=== PATIENT | female | born 1990 | race Caucasian/White ===

== ENCOUNTER 2018-07-08 09:57 | Inpatient (IN) | payer OTHER ==
[2018-07-08] MEDS ORDERED: NA CHLORIDE 0.9% 1,000 ML ONE ×3 (10:34→11:54)
[2018-07-08 10:46] LABS: Absolute Lymphocytes (CBC) 2.9 K/uL (0.7-4.9); Absolute Monocytes 1.3 K/uL (0.1-1.3); Absolute Neutrophil 16.4 K/uL (1.8-8.0); Basophils % 0.5 % (0-1.3); Eosinophils % 1.6 % (0-4.4); Hematocrit 30.6 % (36.0-45.0); Lymphocytes % 13.6 % (15.3-44.8); MPV 11.5 fL (7.6-11.3); RBC Red Blood Cell Count 3.96 M/uL (3.86-4.86)
[2018-07-08 11:07] LABS: BUN Blood Urea Nitrogen 15 mg/dL (7-18); Bicarbonate 31 mmol/L (21-32); Glucose Level 184 mg/dL (74-106); Potassium 4.1 mmol/L (3.5-5.1); Sodium Level 137 mmol/L (136-145); Troponin (Emerg Dept Use Only) 0.02 ng/mL (0.0-0.045)
--- NOTE | 2018-07-08 11:10 | RAD REPORT ---
EXAM DESCRIPTION: RAD - Chest Single View - 07/08/2018 11:03 am CLINICAL HISTORY: fever, AMS Chest pain. COMPARISON: No comparisons FINDINGS: Portable technique limits examination quality. Extensive bilateral pulmonary opacities are present likely representing pneumonia or pulmonary edema. Pneumonia is favored. The heart is upper limit normal size. Severe S-shaped scoliosis. IMPRESSION: Severe bilateral pneumonia pattern suspected.
[2018-07-08 11:21] LABS: Urine Blood TRACE (NEG); Urine Glucose NEGATIVE (NEG); Urine Protein TRACE (NEG)
--- NOTE | 2018-07-08 11:26 | RAD REPORT ---
EXAM DESCRIPTION: CT - Head Brain Wo Cont - 07/08/2018 11:10 am CLINICAL HISTORY: Alteration of awareness/confusion COMPARISON: None TECHNIQUE: Computed axial tomography of the head was obtained. IV contrast was not requested. All CT scans are performed using dose optimization technique as appropriate and may include automated exposure control or mA/KV adjustment according to patient size. FINDINGS: A right craniotomy has been performed An acute intracranial bleed is not seen . Right cerebral gliosis is present presumably is secondary to prior trauma. No extra-axial fluid collection is noted. Cerebral atrophy is noted. Fluid within the sinuses/ mastoids is not seen. IMPRESSION: No acute intracranial abnormality is seen. If patient's symptoms persist MRI of the bra in would be recommended.
[2018-07-08 11:44] LABS: Blood Morphology Comment NOT SEEN (NOT SEEN); Platelet Estimate ADEQ
[2018-07-08] MEDS ORDERED: Levofloxacin 750mg IV 750 MG/150 ML BAG IV ONE (11:54)
[2018-07-08] MEDS ORDERED: CEFTRIAXONE/SWI 1gm 1 GM/10 ML SYR ONE (11:54)
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
--- NOTE | 2018-07-08 15:42 | EKG ---
Test Date: 2018-07-08 Test Time: 09:55:36 Inspector Advanced Composite: TC MEASUREMENT RESULTS: Intervals: Rate: 133 AZ: 132 QRSD: 74 QT: 290 QTc: 431 Center: P: 38 AZ: 132 QRS: -27 T: 44 INTERPRETIVE STATEMENTS: Sinus tachycardia Otherwise normal ECG Compared to ECG 05/08/1996 11:24:00 Sinus rhythm no longer present Electronically Signed On 07-08-18 15:41:35 CDT by Mj Kohli
[2018-07-08] MEDS ORDERED: FENTANYL CITR 100 MCG/2 ML ONE (16:19)
--- NOTE | 2018-07-08 18:35 | P.HP ---
Certification for Inpatient Patient admitted to: Inpatient With expected LOS: >2 Midnights Practitioner: I am a practitioner with admitting privileges, knowledge of patient current condition, hospital course, and medical plan of care. Services: Services provided to patient in accordance with Admission requirements found in Title 42 Section 412.3 of the Code of Federal Regulations Patient History Date of Service: 07/08/18 Reason for admission: Altered mental status History of Present Illness: This is a 27-year-old female with history of TBI as a child leading to quadriplegia admitted for altered mental status common sepsis and pneumonia. Per sister at bedside, who is the exceptional children teacher of patient, starting a few days ago she thought patient was not looking well. On Sunday, she got more congested. Sister tried regular interventions like Mucinex, suctioning, Tylenol, etc which did not seemed to help. Sputum production got progressively worse and this morning, patient was very sleepy, short of breath and limp. She was not really opening eyes, very sleepy and not talking. At baseline, sister states that she is more awake, intermittently does talk and is more alert. With sister called her home health nurse this morning, then EMS was called. In the ER, initially patient's vital signs 105/67, heart rate of 130, respirations of 14, afebrile at 99.3 and 88% on room air. Her chest x-ray was consistent with severe bilateral pneumonia. Her CT of the head was negative for any acute abnormalities. Her labs were remarkable for WBC count of 21, pro calcitonin elevated at 1.98. Her lactic acid was normal and her other labs were fairly unremarkable. She was given Rocephin and Levaquin along with IV fluids 3 L bolus. At the time of my exam, patient was this little more alert, per sister. Hemodynamically she was still stable for tachycardia. She was admitted for management of severe bilateral pneumonia and sepsis. Allergies codeine Allergy (Unverified 03/27/17 14:38) Unknown Home medications list reviewed: Yes - Past Medical/Surgical History -: Quadriplegia -: Traumatic brain injury -: ADD/ADHD -: Dave button - Family History Father -: Cancer Notes: prostate ca Review of Systems 10-point ROS is otherwise unremarkable Physical Examination - Vital Signs Blood Pressure: 106/73 Pulse: 124 Respirations: 27 Pulse Ox (%): 92 - Physical Exam General: In no apparent distress, Other (Sleepy, able to follow commands and answer yes or no questions by blinking eyes) Neck: Supple, 2+ carotid pulse no bruit, No LAD, Without JVD or thyroid abnormality Respiratory: Diminished, Crackles/rales Cardiovascular: Normal pulses, Irregular heart rate/rhythm (Sinus tach) Gastrointestinal: Normal bowel sounds, No tenderness Neurological: Other (Quadriplegic) - Studies Laboratory Data (last 24 hrs) 07/08/18 10:26: WBC 21.0 H*, Hgb 9.4 L, Hct 30.6 L, Plt Count 329 07/08/18 10:26: Sodium 137, Potassium 4.1, BUN 15, Creatinine 0.74, Glucose 184 H Microbiology Data (last 24 hrs): 07/08/18 10:55 Nasopharnyx Influenza Type A Antigen Screen - Final 07/08/18 10:55 Nasopharnyx Influenza Type B Antigen Screen - Final Assessment and Plan - Problems (Diagnosis) (1) Sepsis Current Visit: Yes Status: Acute Plan: Sepsis protocol initiated. IV fluids, 100 cc/hr. She is status post a fluid bolus in the ER. Start IV antibiotics Monitor in the ICU Qualifiers: Sepsis type: sepsis due to unspecified organism Qualified Code(s): A41.9 - Sepsis, unspecified organism (2) Altered mental status Current Visit: Yes Status: Acute Plan: Likely secondary to infection and sepsis. Hemodynamically stable a CT scan negative for any acute abnormalities. Continue to monitor. (3) Bilateral pneumonia Current Visit: Yes Status: Acute Plan: IV antibiotics oxygen per protocol, as needed Repeat chest x-ray tomorrow Qualifiers: Pneumonia type: due to unspecified organism (4) Dehydration Current Visit: Yes Status: Acute Plan: Continue IV fluids. (5) Quadriplegia Current Visit: No Status: Chronic (6) TBI (traumatic brain injury) Current Visit: No Status: Chronic - Plan DVT prophylaxis: Lovenox GI prophylaxis: None Diet: Tube feeds Disposition: Admit to the ICU. IV antibiotics, IV fluids. Continue to monitor her mental status. Pending symptomatic improvement - Advance Directives Does patient have a Living Will: No Does patient have a Durable POA for Healthcare: No Critical Care: Yes
[2018-07-08] MEDS ORDERED: CEFTRIAXONE 1 GM/NS 50 ML 1 GM/50 ML BAG IV SCH (21:00)
[2018-07-08] MEDS: NA CHLORIDE 0.9% 1,000 ML IV SCH (21:12)
[2018-07-08] MEDS: CEFTRIAXONE/SWI 1gm 1 GM/10 ML SYR IV SCH (21:13)
[2018-07-09 05:14] LABS: Absolute Lymphocytes (CBC) 2.7 K/uL (0.7-4.9); Absolute Monocytes 1.2 K/uL (0.1-1.3); Absolute Neutrophil 16.6 K/uL (1.8-8.0); Basophils % 0.4 % (0-1.3); Eosinophils % 1.8 % (0-4.4); Hematocrit 26.7 % (36.0-45.0); Lymphocytes % 12.9 % (15.3-44.8); MPV 11.3 fL (7.6-11.3); Monocytes % 5.8 % (3.3-12.3); RBC Red Blood Cell Count 3.43 M/uL (3.86-4.86)
[2018-07-09 05:24] LABS: ALT/SGPT 12 U/L (12-78); AST/SGOT 18 U/L (15-37); Alkaline Phosphatase 99 U/L (45-117); BUN Blood Urea Nitrogen 8 mg/dL (7-18); Bicarbonate 26 mmol/L (21-32); Bilirubin Total 0.2 mg/dL (0.2-1.0); Glucose Level 89 mg/dL (74-106); Potassium 3.9 mmol/L (3.5-5.1); Protein, Total 6.3 g/dL (6.4-8.2); Sodium Level 139 mmol/L (136-145)
[2018-07-09] MEDS: NA CHLORIDE 0.9% 1,000 ML IV SCH (07:21)
--- NOTE | 2018-07-09 08:36 | RAD REPORT ---
EXAM DESCRIPTION: Jesus Single View07/09/2018 6:31 am CLINICAL HISTORY: Chest pain COMPARISON: July 08 FINDINGS: No significant change in extensive bilateral pulmonary opacities. Heart probably is galindo l size. Marked rotoscoliosis involves the spine IMPRESSION: No significant change in extensive bilateral pulmonary opacities probably representing pneumonia
[2018-07-09] MEDS ORDERED: Levofloxacin500mg IV 500 MG/100 ML BAG IV SCH (09:00)
[2018-07-09] MEDS ORDERED: KCL 20 MEQ/100 mL IVPB 20 MEQ/100 ML BAG IV SCH (09:00)
[2018-07-09] MEDS: ENOXAPARIN 40 MG/0.4 ML SQ SCH (09:12)
[2018-07-09] MEDS: CEFTRIAXONE/SWI 1gm 1 GM/10 ML SYR IV SCH (09:13)
[2018-07-09] MEDS: levETIRAcetam 500 MG/5 ML OSYR PO SCH ×2 (12:20→20:21)
[2018-07-09] MEDS ORDERED: Pharmacy Consult 1 EA XX PRN (12:31)
[2018-07-09] MEDS ORDERED: CEFEPIME 1 GM/VIAL IV SCH (12:32)
--- NOTE | 2018-07-09 12:38 | P.CNS ---
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 patient is quadriplegic patient is nonverbal admitted with chest congestion bilateral pneumonia productive cough worsening shortness of breath chest x-ray shows bilateral pneumonia currently stable alert blood pressure on oxygenation satisfactory does have stomach feeding tube Allergies codeine Allergy (Mild, Verified 07/08/18 21:02) Nausea/Vomiting Home Medications: Albuterol Neb [Proventil 0.083% Neb Soln] 2.5 mg IH Q8H PRN 07/08/18 Baclofen 20 mg PO SEECOM 07/08/18 Diazepam [Valium] 10 mg PO SEECOM 07/08/18 Gabapentin 600 mg PO TID 07/08/18 Guaifenesin/Dextromethorphan [Mucinex Dm ER 600-30 mg Tablet] 1 tab PO BID 07/08 Ibuprofen/Diphenhydramine HCl [Advil Pm Liqui-Gels] 1 each PO BID PRN 07/08/18 levETIRAcetam [Levetiracetam] 5 ml PO BID 07/08/18 - Past Medical/Surgical History Diabetic: No -: Quadriplegia -: Traumatic brain injury -: ADD/ADHD -: weak left eye -: Dave button -: Gastric tube -: left ovary removed -: vaginal 1x -: head surgery -: back sx 1x - Family History Father Medical History: Cancer Notes: prostate ca - Social History Alcohol use: No CD- Drugs: No Caffeine use: No Place of Residence: Home Review of Systems is unable to be obtained Physical Examination Temp Pulse Resp BP Pulse Ox 97.7 F 137 H 32 H 114/74 94 07/09/18 04:00 07/09/18 11:00 07/09/18 11:00 07/09/18 11:00 07/09/18 08:00 Respiratory: Crackles/rales (Extensive crackles on the right side) Cardiovascular: No edema, Edema Gastrointestinal: Normal bowel sounds, Soft and benign Neurological: Other (Patient is quadriplegic) - Problems (1) Bilateral pneumonia Current Visit: Yes Status: Acute Plan: Patient is 27 years of age quadriplegic admitted with the bilateral pneumonia white count is very elevated pro calcitonin is also elevated chest x-ray reviewed suggest changing to cefepime and vancomycin continue with Flagyl Dc IV fluids resume tube feeds labs reviewed blood gases pending saturation is 95% on 3 L Dc IV fluids and pain slight negative fluid balance Qualifiers: Pneumonia type: due to unspecified organism Lung location: unspecified part of lung Qualified Code(s): J18.9 - Pneumonia, unspecified organism
[2018-07-09] MEDS ORDERED: VANCOMYCIN 1.25 GM in NA CHLORIDE 0.9% 250 ML IVPB ONE (13:00)
[2018-07-09] MEDS: CEFEPIME/SWI 1gm 10 ML IV SCH ×2 (14:17→20:20)
[2018-07-09] MEDS: GABAPENTIN 300 MG CAP PO SCH ×2 (14:18→20:20)
[2018-07-09] MEDS: ALBUTEROL 2.5 MG/3 ML NEB SOL IH PRN (14:23)
[2018-07-09] MEDS: METRONIDAZOLE 500mg IVPB 500 MG/100 ML BAG IV SCH (17:00)
[2018-07-09 17:13] LABS: Arterial Blood Carboxyhemoglob 1.9 % (0-1.5); Blood O2 Saturation 91.9 % (92-98.5)
--- NOTE | 2018-07-09 17:16 | PN ---
Date of Progress Note: 07/09/2018 Subjective: The patient is seen and examined. Chart reviewed and case discussed with RN. The patie nt appears to be in mild distress. The patient has history of traumatic brain injury, unable to coop erate with history taking. The patient remains tachycardic and tachypneic. Medications: List reviewed. Physical Examination: Vital Signs: Temperature 97.7, heart rate 132, blood pressure 123/81, respirations 28, and O2 91% on 3 L via nasal cannula. General: Awake, alert, not oriented, in mild distress, ill-appearing female. CV: S1 and S2. Sinus tachycardia. Peripheral pulses present. Respiratory: Diminished breath sounds. Rhonchi present. The patient is tachypneic with use of acce ssory muscles. Gastrointestinal: Abdomen is soft, nontender, nondistended. Positive bowel sounds. No guarding or rigidity. Dave tube in place. Extremities: No clubbing or cyanosis. The patient has peripheral edema. Neurologic: The patient has paraplegia, nystagmus present. Laboratory Data: Sodium 139, potassium 3.9, chloride 109, CO2 26, BUN 8, creatinine 0.37, glucose 89 , calcium 7.5, albumin 2. WBC 21, H and H 8.4 and 26.7, platelets 267, neutrophils 79%. Cultures ar e pending. Influenza screen negative. Chest x-ray personally reviewed shows no significant change i n extensive bilateral pulmonary opacities, probably representing pneumonia. Assessment And Plan: A 27-year-old female with: 1.Sepsis. We will continue with IV fluids. Adjust IV antibiotics. Cultures are pending. The jesse ent is still tachycardic and tachypneic. We will repeat lactate and procalcitonin level. May need b olus. 2.Acute metabolic encephalopathy, likely secondary to sepsis from pneumonia. CT scan was negative. The patient does have some nystagmus. We will restart on the patient's Keppra. 3.Bilateral pneumonia, possible aspiration. The patient has feeding tube in place. We will adjust IV antibiotics. Cultures are pending at this time. Consult Pulmonology. 4.Acute dehydration. Continue IV fluids. 5.Severe protein-calorie malnutrition. Albumin is 2. Continue with protein supplementation. 6.Quadriplegia. 7.History of traumatic brain injury, not back to baseline. Plan: DVT prophylaxis with Lovenox. Continue monitoring in ICU setting. /LEE Voice ID: [id number] Report ID: [id number]
[2018-07-09] MEDS: BACLOFEN 10 MG TAB PO SCH (20:19)
[2018-07-09] MEDS: MUCINEX DM 12HR.SR TAB PO SCH (21:00)
[2018-07-10] MEDS: METRONIDAZOLE 500mg IVPB 500 MG/100 ML BAG IV SCH ×3 (01:31→16:19)
[2018-07-10] MEDS: VANCOMYCIN/NS 1 gm 1 GM/250 ML BAG IV SCH ×2 (01:31→14:02)
[2018-07-10 05:52] LABS: Absolute Lymphocytes (CBC) 2.2 K/uL (0.7-4.9); Absolute Monocytes 1.8 K/uL (0.1-1.3); Absolute Neutrophil 10.4 K/uL (1.8-8.0); BUN Blood Urea Nitrogen 4 mg/dL (7-18); Basophils % 0.5 % (0-1.3); Bicarbonate 32 mmol/L (21-32); Eosinophils % 3.4 % (0-4.4); Glucose Level 91 mg/dL (74-106); Hematocrit 29.1 % (36.0-45.0); Lymphocytes % 14.6 % (15.3-44.8); MPV 10.9 fL (7.6-11.3); Magnesium 2.3 mg/dL (1.8-2.4); Monocytes % 12.1 % (3.3-12.3); RBC Red Blood Cell Count 3.73 M/uL (3.86-4.86); Sodium Level 143 mmol/L (136-145)
--- NOTE | 2018-07-10 08:40 | P.PN ---
Subjective Date of Service: 07/10/18 Chief Complaint: Altered mental status, pneumonia respiratory failure Patient's condition is stable she is still requiring considerable amount of oxygen on a non-rebreather white count is declining blood pressure stable Review of Systems is unable to be obtained Physical Examination - Vital Signs Temperature: 97.4 F Blood Pressure: 107/72 Pulse: 119 Respirations: 21 Pulse Ox (%): 100 - Physical Exam General: Unresponsive Neck: Supple Respiratory: Clear to auscultation bilaterally Cardiovascular: Edema - Studies Microbiology Data (last 24 hrs): 07/08/18 10:26 Catheterized Urine [place] Count - Final 07/08/18 10:26 Catheterized Urine - Final No growth. Assessment & Plan - Problems (Diagnosis) (1) Bilateral pneumonia Current Visit: Yes Status: Acute Plan: Patient admitted with bilateral pneumonia hypoxic white count is declining cultures negative start on BiPAP chemistries reviewed pro calcitonin level is elevated patient is on broad-spectrum antibiotics Qualifiers: Pneumonia type: due to unspecified organism Lung location: unspecified part of lung Qualified Code(s): J18.9 - Pneumonia, unspecified organism
[2018-07-10 08:55] LABS: Anisocytosis 1+; Blood Morphology Comment NOTED (NOT SEEN); Platelet Estimate ADEQ; Toxic Granulation 1+
[2018-07-10] MEDS: MUCINEX DM 12HR.SR TAB PO SCH ×2 (09:00→21:00)
[2018-07-10] MEDS: CEFEPIME/SWI 1gm 10 ML IV SCH ×2 (09:00→21:56)
[2018-07-10] MEDS ORDERED: JEVITY 1.2 CAL LIQUID 1,000 ML BOT RTH SCH (10:00)
[2018-07-10] MEDS: ENOXAPARIN 40 MG/0.4 ML SQ SCH (11:03)
[2018-07-10] MEDS: GABAPENTIN 300 MG CAP PO SCH ×3 (11:03→21:55)
[2018-07-10] MEDS: BACLOFEN 10 MG TAB PO SCH ×3 (11:05→21:57)
[2018-07-10] MEDS: levETIRAcetam 500 MG/5 ML OSYR PO SCH ×2 (11:06→21:56)
[2018-07-10] MEDS ORDERED: NA CHLORIDE 0.9% 500 ML IV ONE (16:25)
--- NOTE | 2018-07-10 18:29 | PN ---
Date of Progress Note: 07/10/2018 Subjective: The patient is seen and examined. Chart reviewed and case discussed with RN and Dr. Kirstin doshi. The patient continues to have respiratory distress, will be started on BiPAP shortly. Medications: List reviewed. Physical Examination: Vital Signs: Temperature 97.4, heart rate 119, blood pressure 107/72, respirations 21, O2 100% on a BiPAP. General: Asleep, arousable; however, lethargic, in some respiratory distress. Ill-appearing female. CV: S1, S2. Sinus tachycardia. Peripheral pulses present. Respiratory: Diminished breath sounds. The patient is tachypneic with the use of accessory muscles. Gastrointestinal: Abdomen is soft, nontender, and nondistended. Positive bowel sounds. Extremities: No clubbing or cyanosis. The patient does have peripheral edema. Neuro: The patient is paraplegic. Laboratory Data: Sodium 143, potassium 4, chloride 107, CO2 32, BUN 4, creatinine 0.34, glucose 91, calcium 8.8, phosphorus 3, magnesium 2.3. Procalcitonin level from yesterday was 11.62. WBC 14.9, H and H 8.9 and 29.1, platelets 251, neutrophils 69%, 2% bands. Blood cultures show no growth to date . Urine culture final shows no growth. Assessment And Plan: A 27-year-old female with: 1.Sepsis secondary to pneumonia. The patient's white count is trending down. IV antibiotics were a djusted yesterday. Cultures show no growth to date. We will continue to monitor. 2.Acute respiratory failure. The patient is now on BiPAP secondary to bilateral pneumonia. We will continue to monitor closely. Appreciate Dr. Sevilla's input. 3.Acute metabolic encephalopathy, likely secondary to sepsis and pneumonia. The patient is still no t back to baseline according to her sister. 4.Bilateral pneumonia, possible aspiration. Feeding tube is in place. IV antibiotics have been adj usted. Cultures are negative to date. We will repeat chest x-ray in a.m. 5.Acute dehydration, resolving. IV fluids have been discontinued. 6.Severe protein-calorie malnutrition. Albumin less than 2. We will continue tube feeds. 7.Quadriplegia. We will continue with turning every 2 hours and foam boots for the heel. 8.History of traumatic brain injury. 9.Deep venous thrombosis prophylaxis with Lovenox. Plan: Continue monitoring in ICU setting. Prognosis is guarded. Follow up on culture results. /GLADYSL Voice ID: [id number] Report ID: [id number]
[2018-07-10] MEDS: ALBUTEROL 2.5 MG/3 ML NEB SOL IH PRN (20:20)
[2018-07-10] MEDS: FAMOTIDINE 20 MG/2 ML VIAL IV SCH (21:57)
[2018-07-11] MEDS: METRONIDAZOLE 500mg IVPB 500 MG/100 ML BAG IV SCH ×3 (01:04→17:15)
[2018-07-11] MEDS: ALBUTEROL 2.5 MG/3 ML NEB SOL IH PRN ×3 (02:30→16:30)
[2018-07-11] MEDS: VANCOMYCIN/NS 1 gm 1 GM/250 ML BAG IV SCH (05:38)
[2018-07-11 06:18] LABS: BUN Blood Urea Nitrogen 6 mg/dL (7-18); Bicarbonate 33 mmol/L (21-32); Glucose Level 80 mg/dL (74-106); Potassium 3.8 mmol/L (3.5-5.1); Sodium Level 146 mmol/L (136-145)
[2018-07-11 06:20] LABS: Absolute Monocytes 1.3 K/uL (0.1-1.3); Absolute Neutrophil 7.3 K/uL (1.8-8.0); Basophils % 0.5 % (0-1.3); Eosinophils % 4.7 % (0-4.4); Hematocrit 23.4 % (36.0-45.0); Lymphocytes % 24.7 % (15.3-44.8); MPV 10.5 fL (7.6-11.3); Monocytes % 10.4 % (3.3-12.3); RBC Red Blood Cell Count 3.08 M/uL (3.86-4.86)
[2018-07-11] MEDS ORDERED: POTASSIUM 25 MEQ EFFERV TAB PO ONE (08:00)
[2018-07-11] MEDS: MUCINEX DM 12HR.SR TAB PO SCH ×2 (09:00→21:00)
[2018-07-11] MEDS: levETIRAcetam 500 MG/5 ML OSYR PO SCH ×2 (09:43→21:02)
[2018-07-11] MEDS: BACLOFEN 10 MG TAB PO SCH ×3 (09:44→21:02)
[2018-07-11] MEDS: GABAPENTIN 300 MG CAP PO SCH ×3 (09:44→21:02)
[2018-07-11] MEDS: ENOXAPARIN 40 MG/0.4 ML SQ SCH (09:44)
[2018-07-11] MEDS: FAMOTIDINE 20 MG/2 ML VIAL IV SCH (09:44)
[2018-07-11] MEDS: CEFEPIME/SWI 1gm 10 ML IV SCH ×2 (09:45→21:03)
--- NOTE | 2018-07-11 09:58 | RAD REPORT ---
EXAM DESCRIPTION: Jesus Single View07/11/2018 9:49 am CLINICAL HISTORY: Chest pain COMPARISON: July 09 FINDINGS: Mild to moderate improvement in the bilateral pulmonary opacities. The heart is normal siz e IMPRESSION: Mild to moderate improvement in the bilateral pneumonia
[2018-07-11] MEDS: VANCOMYCIN 1.25 GM in NA CHLORIDE 0.9% 250 ML IVPB SCH (13:32)
--- NOTE | 2018-07-11 14:23 | P.PN ---
Subjective Date of Service: 07/11/18 Chief Complaint: Altered mental status, pneumonia respiratory failure Condition stable according to the nursing staff patient experiences desaturation off BiPAP white count is improving chest x-ray appearances have cleared cultures are so far negative Review of Systems is unable to be obtained Physical Examination - Vital Signs Temperature: 97.7 F Blood Pressure: 107/81 Pulse: 112 Respirations: 32 Pulse Ox (%): 100 - Physical Exam General: Unresponsive Respiratory: Clear to auscultation bilaterally, Diminished Cardiovascular: No edema Assessment & Plan - Problems (Diagnosis) (1) Bilateral pneumonia Current Visit: Yes Status: Acute Plan: Patient admitted with bilateral pneumonia improving white count is declined significantly cultures are all negative vital signs stable she is only on 30% oxygen will titrate O2 off BiPAP to a sat of 90% repeat ABGs labs show mild hypernatremia with increase PEG tube fluids mildly anemic continue to monitor check labs Qualifiers: Pneumonia type: due to unspecified organism Lung location: unspecified part of lung Qualified Code(s): J18.9 - Pneumonia, unspecified organism
[2018-07-11 16:37] LABS: Arterial Blood Carboxyhemoglob 1.6 % (0-1.5); Blood Gas Oxyhemoglobin 87.5 % (94-97); Blood O2 Saturation 89.1 % (92-98.5)
--- NOTE | 2018-07-11 16:41 | PN ---
Date of Progress Note: 07/11/2018 Subjective: The patient seen and examined. Chart reviewed and case discussed with RN and Dr. Felipe xavier. The patient seems to be improving. White count is trending down. No family at the bedside. Th e patient not able to verbalize due to her medical condition. Did wake up slightly more yesterday. Medications: List reviewed. Physical Examination: Vital Signs: Temperature 97.7, heart rate 97, blood pressure 92/62, respirations 14, O2 99% on BiPAP . General: Asleep but arousable, ill-appearing female. CV: S1, S2. Sinus tachycardia. Peripheral pulses present. Respiratory: The patient has diminished breath sounds bilaterally. Rhonchi heard. Gastrointestinal: Abdomen is soft, nondistended. Positive bowel sounds. Dave tube in place. Extremities: No clubbing, cyanosis. The patient has peripheral edema of bilateral upper and lower e xtremities. Neuro: The patient is paraplegic, largely nonverbal. Laboratory Data: Sodium 146, potassium 3.8, chloride 108, CO2 33, BUN 6, creatinine 0.29, glucose 80 , calcium 8.2. WBC 12.2, H and H 7.3, 23.4, platelets 274, neutrophils 59%. Blood cultures, no grow th to date. Urine culture, no growth. Chest x-ray, [id number] improvement in the bilateral pn eumonia. Assessment And Plan: A 27-year-old female with: 1.Sepsis secondary to pneumonia, improving. The patient's white blood cell count is normalized and the patient is still tachycardic and tachypneic, now hypotensive. The patient received 0.5 L bolus y esterday. She continues to be hypotensive, but MAP is around 72. No need to initiate pressors unles s MAP is below 65, and not responding to fluids. Cultures are negative to date. 2.Acute respiratory failure, currently on BiPAP. The patient was attempted to be weaned off, howeve r, became very tachypneic and increased work of breathing. We will continue BiPAP for now currently at 30% FiO2. Appreciate Dr. Sevilla's input. 3.Bilateral pneumonia, possible aspiration. The patient does have feeding tube and according to the sister they do hand-feed her on special occasions, which may be a reason for the aspiration. Contin ue IV antibiotics. Cultures are negative. Today's chest x-ray personally reviewed shows improvement in bilateral opacities. 4.Acute dehydration improving. 5.Severe protein-calorie malnutrition. Albumin less than 2. Continue protein supplementation and t ube feeds. 6.Quadriplegia. We will continue offloading in foam boots or heels. 7.History of traumatic brain injury. 8.Deep venous thrombosis prophylaxis with Lovenox. Plan: Continue monitoring in ICU setting. The patient still on BiPAP. Difficult to wean off. We w ill adjust IV fluids for hypernatremia which is minimal at 146. SA/MODL Voice ID: [id number] Report ID: [id number]
[2018-07-11 18:15] LABS: Hematocrit 23.1 % (36.0-45.0)
[2018-07-11 19:31] LABS: Ferritin 64.1 ng/mL (8-388)
[2018-07-11] MEDS ORDERED: NA CHLORIDE 0.9% 250 ML ONE (20:38)
[2018-07-12] MEDS: METRONIDAZOLE 500mg IVPB 500 MG/100 ML BAG IV SCH ×2 (00:49→09:41)
[2018-07-12] MEDS: VANCOMYCIN 1.25 GM in NA CHLORIDE 0.9% 250 ML IVPB SCH ×2 (00:50→13:11)
[2018-07-12 03:53] LABS: Absolute Lymphocytes (CBC) 2.9 K/uL (0.7-4.9); Absolute Monocytes 0.8 K/uL (0.1-1.3); Absolute Neutrophil 6.2 K/uL (1.8-8.0); Basophils % 0.8 % (0-1.3); Hematocrit 29.6 % (36.0-45.0); Lymphocytes % 27.9 % (15.3-44.8); MPV 10.1 fL (7.6-11.3); Monocytes % 7.8 % (3.3-12.3); RBC Red Blood Cell Count 3.76 M/uL (3.86-4.86)
[2018-07-12 07:05] LABS: BUN Blood Urea Nitrogen 6 mg/dL (7-18); Bicarbonate 36 mmol/L (21-32); Ferritin 65.3 ng/mL (8-388); Folic Acid, (Folate) > 20.0 ng/mL (3.1-17.5); Glucose Level 80 mg/dL (74-106); Potassium 3.6 mmol/L (3.5-5.1); Sodium Level 144 mmol/L (136-145); Transferrin 165 mg/dL (200-360)
[2018-07-12] MEDS: MUCINEX DM 12HR.SR TAB PO SCH ×3 (09:00→21:00)
[2018-07-12] MEDS: ENOXAPARIN 40 MG/0.4 ML SQ SCH (09:41)
[2018-07-12] MEDS: GABAPENTIN 300 MG CAP PO SCH ×3 (09:41→20:54)
[2018-07-12] MEDS: levETIRAcetam 500 MG/5 ML OSYR PO SCH ×2 (09:42→20:54)
[2018-07-12] MEDS: BACLOFEN 10 MG TAB PO SCH ×5 (09:42→21:04)
[2018-07-12] MEDS: CEFEPIME/SWI 1gm 10 ML IV SCH (09:43)
[2018-07-12] MEDS ORDERED: POTASSIUM 25 MEQ EFFERV TAB PO ONE (11:10)
--- NOTE | 2018-07-12 14:37 | P.PN ---
Subjective Date of Service: 07/12/18 Chief Complaint: Altered mental status, pneumonia respiratory failure Condition stable according to the nursing staff patient experiences desaturation off BiPAP white count is improving chest x-ray appearances have cleared cultures are so far negative patient is iron deficient transfusion packed red blood cells hypoxic hypercapnic Review of Systems is unable to be obtained Physical Examination - Vital Signs Temperature: 98 F Blood Pressure: 96/73 Pulse: 105 Respirations: 30 Pulse Ox (%): 98 - Physical Exam General: Alert Neck: Supple Respiratory: Clear to auscultation bilaterally, Diminished Cardiovascular: No edema, Normal pulses Assessment & Plan - Problems (Diagnosis) (1) Bilateral pneumonia Current Visit: Yes Status: Acute Plan: Patient has improve pneumonia is clearing his hypoxic hypercapnic may qualify for noninvasive vent cultures are so far negative chest x-ray shows an improvement still has some haziness on the right side all cultures are negative Dc IV antibiotics change to Augmentin patient is currently receiving blood transfusion very iron deficient will recheck arterial blood gases she may qualify for noninvasive ventilator transfer to the floor Qualifiers: Pneumonia type: due to unspecified organism Lung location: unspecified part of lung Qualified Code(s): J18.9 - Pneumonia, unspecified organism
[2018-07-12 15:49] LABS: Arterial Blood Carboxyhemoglob 1.5 % (0-1.5); Blood Gas Oxyhemoglobin 91.5 % (94-97); Blood O2 Saturation 93.1 % (92-98.5)
--- NOTE | 2018-07-12 16:34 | PN ---
Date of Progress Note: 07/12/2018 The patient much more awake and alert. Apparently, she blinks her eyes to say yes, was able to follow some commands today. Has been off BiPAP since around 7 a.m., doing well on nasal cannula. Medications: List reviewed. Physical Examination: Vital Signs: Temperature 98, heart rate 95, blood pressure 109/86, respirations 14, O2 100% on 2 L via nasal cannula. General: Awake, alert, nonverbal, able to follow some commands, responding to yes or no questions by blinking her eyes. CV: S1, S2. Sinus tachycardia. Peripheral pulses present. Respiratory: Diminished breath sounds. No wheezing or stridor. Gastrointestinal: Abdomen is soft, nontender, nondistended. Positive bowel sounds. Dave tube in place. Extremities: No clubbing, cyanosis, or edema. The patient does have peripheral edema. Neuro: The patient is paraplegic. Skin: The patient has stage I ulcer of the sacrum. Laboratory Data: Sodium 144, potassium 3.6, chloride 104, CO2 of 36, BUN 6, creatinine 0.37, glucose 80, and calcium 8.5. Iron panel shows iron level 18, TIBC is 209, transferrin 149, ferritin 64.1, vitamin B12 level 1513, serum folate is greater than 20. Procalcitonin is 1.72. WBC 10.5, H and H is 9.5 and 29.6, platelets 282. Blood culture showed no growth to date. Assessment And Plan: A 27-year-old female with: 1. Sepsis secondary to pneumonia, improved significantly. White blood cell count has normalized. Cultures are negative. Chest x-ray shows improvement. Blood pressure still on the low side, but MAP has improved to the 90s. 2. Acute respiratory failure, now off BiPAP for a couple of hours, tolerating nasal cannula well, slightly tachypneic. We will continue to monitor secondary to pneumonia. 3. Bilateral pneumonia, likely aspiration. Continue IV antibiotics. Cultures , no growth to date, improving. 4. Acute dehydration, improved. 5. Severe protein-calorie malnutrition. Continue protein supplementation via tube feeds. 6. Paraplegia. Continue offloading. 7. Sacral decubitus ulcer stage I. 8. History of traumatic brain injury. 9. Hypernatremia, corrected. We will continue to monitor. 10. Acute anemia. No clear source. May be related to anemia of chronic disease. The patient was transfused 1 unit PRBCs and we will continue to monitor H and H. DVT prophylaxis: Lovenox Step down to Med/Surg if stable off BIPAP SA/MODL Voice ID: [id number] Report ID: [id number] [facility]
--- NOTE | 2018-07-12 19:55 | RAD REPORT ---
EXAM DESCRIPTION: US - Pelvis Complete - 07/12/2018 6:55 pm CLINICAL HISTORY: Pelvic pain, vaginal bleeding COMPARISON: None. TECHNIQUE: Transabdominal pelvic sonography was performed. FINDINGS: Urinary bladder shows no wall thickening or mass. Uterus is 6.1 x 3.4 x 4.4 cm. Endometriu m is 3 mm. No focal endometrial mass or polyp. Right ovary is closely approximated to the lateral mar gin of the uterus. Doppler evaluation shows flow within the ovarian stroma. Left ovary was not identi fiable. No adnexal mass. No blood or fluid in the cul de sac. IMPRESSION: No uterine abnormality identifiable. Right ovary and right adnexa unremarkable. Nonvisualization of the left ovary with no left adnexal mass.
[2018-07-12] MEDS: AMOX/K CLAV 500 MG TAB PO SCH (20:54)
[2018-07-13 06:00] LABS: Absolute Lymphocytes (CBC) 2.8 K/uL (0.7-4.9); Absolute Monocytes 1.1 K/uL (0.1-1.3); Absolute Neutrophil 7.5 K/uL (1.8-8.0); Basophils % 0.5 % (0-1.3); Eosinophils % 3.8 % (0-4.4); Hematocrit 32.1 % (36.0-45.0); Lymphocytes % 23.4 % (15.3-44.8); RBC Red Blood Cell Count 4.11 M/uL (3.86-4.86)
[2018-07-13 06:14] LABS: BUN Blood Urea Nitrogen 8 mg/dL (7-18); Bicarbonate 35 mmol/L (21-32); Glucose Level 74 mg/dL (74-106); Magnesium 2.3 mg/dL (1.8-2.4); Phosphorus 3.7 mg/dL (2.5-4.9); Potassium 3.9 mmol/L (3.5-5.1); Sodium Level 141 mmol/L (136-145)
[2018-07-13] MEDS: ENOXAPARIN 40 MG/0.4 ML SQ SCH (08:05)
[2018-07-13] MEDS: GABAPENTIN 300 MG CAP PO SCH ×3 (08:06→20:34)
[2018-07-13] MEDS: MUCINEX DM 12HR.SR TAB PO SCH ×2 (08:07→20:33)
[2018-07-13] MEDS: levETIRAcetam 500 MG/5 ML OSYR PO SCH ×2 (08:07→20:33)
[2018-07-13] MEDS: AMOX/K CLAV 500 MG TAB PO SCH ×2 (08:08→20:33)
[2018-07-13 08:36] LABS: Blood Morphology Comment NOT SEEN (NOT SEEN); Platelet Estimate ADEQ; Urine White Blood Cell Casts OK
[2018-07-13] MEDS ORDERED: POTASSIUM 25 MEQ EFFERV TAB PO ONE (09:00)
--- NOTE | 2018-07-13 14:44 | PN ---
Date of Progress Note: 07/13/2018 Subjective: Patient seen and examined. Chart reviewed and case discussed with RN. The patient was stepped down from the ICU yesterday, much more awake and alert today. No family at the bedside. Medications: List reviewed. Physical Examination: Vital Signs: Temperature 98, heart rate 112, blood pressure 100/73, respirations 16, O2 is 97% on 2 liters via nasal cannula. General: Awake, alert, does not appear to be any acute distress. CV: S1, S2. Regular rate and rhythm. Peripheral pulses present. Respiratory: Diminished breath sounds, improving. Gastrointestinal: Abdomen is soft, nontender, nondistended. Positive bowel sounds. Boris-Gould tube in place. Extremities: No clubbing or cyanosis. The patient has peripheral edema bilateral upper and lower extremities. Neuro: Paraplegia. Laboratory Data: Sodium 141, potassium 3.9, chloride 101, CO2 35, BUN 8, creatinine 0.3, glucose 74, calcium 8.5, phosphorus 3.7, magnesium 2.3. WBC 11.9, H and H 10.3 and 32.1, platelets 332. Cultures, no growth to date. Assessment And Plan: A 27-year-old female with; 1. Sepsis secondary to pneumonia, improving. White blood cell count slightly elevated today. Cultures are negative. The patient now out of the ICU. The patient has been switched over to Augmentin. 2. Acute respiratory failure, now off BiPAP, doing well on nasal cannula. The patient will likely need noninvasive vent or BiPAP at home. Appreciate Dr. Sevilla's input. 3. Bilateral pneumonia, likely aspiration. The patient is switched over to Augmentin improving. 4. Acute dehydration, resolved. 5. Severe protein-calorie malnutrition. We will continue protein supplementation via tube feeds. 6. Paraplegia. Continue offloading. 7. Sacral decubitus ulcer stage I. 8. History of traumatic brain injury. 9. Deep venous thrombosis prophylaxis with Lovenox. 10. Acute anemia, unclear source. The patient had history of pelvic bleeding in the past. Ultrasound does not show any acute issues. We will monitor H and H. The patient has been transfuse 1 unit PRBC. Checks stool occult. 11. Hypernatremia, corrected. Plan: Discharge once noninvasive vent has been set up. ADDENDUM: Patients respiratory status deteriorated and had to be placed back on BIPAP. High fever, tachycardia and tachypnea. Pt transferred to ICU. ABG and CXR ordered. SA/MODL Voice ID: [id number] Report ID: [id number] MTDD
[2018-07-13] MEDS: ALBUTEROL 2.5 MG/3 ML NEB SOL IH PRN (14:55)
[2018-07-13 15:45] LABS: Arterial Blood Carboxyhemoglob 1.4 % (0-1.5); Blood O2 Saturation 93.9 % (92-98.5)
--- NOTE | 2018-07-13 16:26 | RAD REPORT ---
EXAM DESCRIPTION: Jesus Single View07/13/2018 4:05 pm CLINICAL HISTORY: Shortness of breath COMPARISON: July 11 FINDINGS: Left lung opacities appear mostly resolved. No significant change in moderate right pulmonary opacities consistent with pneumonia.
[2018-07-13] MEDS: ACETAMINOPHEN 325 MG TABLET PO PRN (18:49)
[2018-07-13] MEDS ORDERED: ACETAMINOPHEN 325 MG TABLET ONE (19:01)
[2018-07-13] MEDS: BACLOFEN 10 MG TAB PO SCH (20:34)
[2018-07-14 06:35] LABS: Absolute Lymphocytes (CBC) 4.1 K/uL (0.7-4.9); Absolute Monocytes 1.6 K/uL (0.1-1.3); Absolute Neutrophil 12.5 K/uL (1.8-8.0); Basophils % 0.6 % (0-1.3); Eosinophils % 2.2 % (0-4.4); Hematocrit 32.2 % (36.0-45.0); MPV 9.8 fL (7.6-11.3); Monocytes % 8.5 % (3.3-12.3); RBC Red Blood Cell Count 4.12 M/uL (3.86-4.86)
[2018-07-14] MEDS: ALBUTEROL 2.5 MG/3 ML NEB SOL IH PRN (07:50)
[2018-07-14] MEDS: GABAPENTIN 300 MG CAP PO SCH ×3 (09:00→21:00)
[2018-07-14] MEDS: MUCINEX DM 12HR.SR TAB PO SCH ×2 (09:00→21:00)
[2018-07-14] MEDS ORDERED: POTASSIUM 25 MEQ EFFERV TAB FT ONE (09:00)
[2018-07-14] MEDS: BACLOFEN 10 MG TAB PO SCH ×3 (11:11→21:11)
[2018-07-14] MEDS: levETIRAcetam 500 MG/5 ML OSYR PO SCH ×2 (11:11→21:11)
[2018-07-14] MEDS: ENOXAPARIN 40 MG/0.4 ML SQ SCH (11:11)
[2018-07-14] MEDS: AMOX/K CLAV 500 MG TAB PO SCH (11:11)
[2018-07-14] MEDS ORDERED: GABAPENTIN 100 MG CAP ONE ×2 (11:18→21:24)
[2018-07-14] MEDS ORDERED: Pharmacy Consult 1 EA XX PRN (11:20)
--- NOTE | 2018-07-14 11:22 | P.PN ---
Subjective Date of Service: 07/14/18 Chief Complaint: Respiratory distress fever Patient is 28 years of age was recently transferred to the floor developed some fever for respiratory distress elevated white count was transferred to the ICU is currently alert responsive hemodynamically stable Review of Systems is unable to be obtained Physical Examination - Vital Signs Temperature: 99.9 F Blood Pressure: 101/69 Pulse: 113 Respirations: 14 Pulse Ox (%): 98 - Physical Exam General: Alert, Cooperative Respiratory: Clear to auscultation bilaterally Cardiovascular: No edema, Regular rate/rhythm - Studies Microbiology Data (last 24 hrs): 07/08/18 10:45 Blood - Blood Aerobic Blood Culture - Final No growth in 5 days. 07/08/18 10:45 Blood - Blood Anaerobic Blood Culture - Final No growth in 5 days. 07/08/18 10:26 Blood - Blood Aerobic Blood Culture - Final No growth in 5 days. 07/08/18 10:26 Blood - Blood Anaerobic Blood Culture - Final No growth in 5 days. Assessment & Plan - Problems (Diagnosis) (1) Bilateral pneumonia Current Visit: Yes Status: Acute Plan: Patient is 28 years of age transfer to the ICU for recurrent fever elevated white count chest x-ray shows some Nasonex on the right side restart patient on meropenem and vancomycin I have ordered a CT scan of the chest chemistries unremarkable Dc Augmentin CT scan of the chest blood cultures urine cultures fungal cultures Qualifiers: Pneumonia type: due to unspecified organism Lung location: unspecified part of lung Qualified Code(s): J18.9 - Pneumonia, unspecified organism
--- NOTE | 2018-07-14 12:27 | RAD REPORT ---
EXAM DESCRIPTION: RAD - Chest Single View - 07/14/2018 9:27 am CLINICAL HISTORY: follow up PNA, increased WBCs Chest pain. COMPARISON: Chest Single View dated 07/13/2018; Chest Single View dated 07/11/2018; Chest Single View dated 07/09/2018; Chest Single View dated 07/08/2018 FINDINGS: Portable technique limits examination quality. Mild improvement in right lower lobe pulmonary infiltrate since comparative study. The left lung is c lear. The heart is normal in size. Prominent dextroscoliosis of the thoracic spine. IMPRESSION: Mild improvement in right lower lobe pneumonia since comparative study.
--- NOTE | 2018-07-14 14:56 | PN ---
Date of Progress Note: 07/14/2018 Subjective: Patient seen and examined. Chart reviewed and case discussed with RN. The patient had acute deterioration in her respiratory status yesterday and had to be transferred back to the ICU and place on the BiPAP. Her x-ray shows worsening of the right side. Medications: List reviewed. Physical Examination: Vital Signs: Temperature 99.9, heart rate 115, blood pressure 91/54, respirations 17, O2 is 98% on B iPAP 30%. General: Asleep, arousable, opens eyes, more lethargic than yesterday. CV: S1, S2. Sinus tachycardia. Peripheral pulses present. Respiratory: Diminished breath sounds on the right side, tachypneic. Gastrointestinal: Abdomen is soft, nontender, nondistended. Positive bowel sounds. Boris-Gould tube in place. Extremities: No clubbing or cyanosis. The patient has peripheral edema in bilateral upper and lower extremities. Neuro: Paraplegia. Laboratory Data: WBC 18.7, H and H 10.1 and 32.2, platelets 411. Cultures, no growth. Final chest x-ray continues to show infiltrate on the right. Left-sided infiltrate has improved. Assessment And Plan: A 28-year-old female with; 1.Sepsis. White count going up. Cultures are negative. The patient had been switched over to p.o. antibiotics yesterday. May need to revert back to IV antibiotics. We will discuss further with Pul monology. 2.Acute respiratory failure, back on BiPAP. The patient continues to be hypoxemic and retains CO2. Pneumonia is also a contributing factor. 3.Bilateral pneumonia, possible aspiration pneumonia. Chest x-ray shows improvement on the left; ho wever, right-sided infiltrates are persistent. Adjust antibiotics. 4.Acute dehydration, resolved. 5.Severe protein-calorie malnutrition. We will continue protein supplementation. 6.Paraplegia. Continue offloading. 7.Sacral decubitus ulcer stage I. 8.History of traumatic brain injury. 9.Acute anemia, unclear source. No active bleeding source. Hemoccult still pending. The patient w as transfused 1 unit PRBCs and H and H stable. We will monitor and transfuse a unit for less than 7. 10.Hypernatremia, corrected. 11.Deep venous thrombosis prophylaxis, Lovenox. The patient is high risk for DVT due to her paraple trent. Plan: Continue to monitor in ICU setting. Adjust antibiotics. /LEE Voice ID: [id number] Report ID: [id number]
[2018-07-14] MEDS ORDERED: VANCOMYCIN 1.5 GM in NA CHLORIDE 0.9% 500 ML IVPB ONE ×2 (15:00→19:00)
--- NOTE | 2018-07-14 15:36 | RAD REPORT ---
EXAM DESCRIPTION: RAD - Chest Single View - 07/14/2018 3:12 pm CLINICAL HISTORY: PICC line placement COMPARISON: Chest Single View dated 07/14/2018; Chest Single View dated 07/13/2018; Chest Single View dated 07/11/2018; Chest Single View dated 07/09/2018 FINDINGS: Portable chest was obtained following placement of a right upper extremity PICC line. The catheter tip projects over the SVC, however the distal aspect of the PICC line appears to coil in a U -shaped fashion and its tip is pointed cephalad..
[2018-07-14] MEDS ORDERED: Meropenem 500 MG VIAL IV SCH (17:00)
--- NOTE | 2018-07-14 17:55 | RAD REPORT ---
EXAM DESCRIPTION: RAD - Chest Single View - 07/14/2018 5:25 pm CLINICAL HISTORY: reinsertion of PICC line COMPARISON: Chest Single View dated 07/14/2018; Chest Single View dated 07/14/2018; Chest Single View dated 07/13/2018; Chest Single View dated 07/11/2018 FINDINGS: Portable chest was obtained following placement of a right upper extremity PICC line. The catheter tip projects over the SVC..
[2018-07-14] MEDS: Meropenem 500 MG in NA CHLORIDE 0.9% 100 ML IV SCH (18:08)
[2018-07-14 19:14] LABS: Urine Appearance CLEAR; Urine Bilirubin NEGATIVE (NEG); Urine Blood 1+ (NEG); Urine Color YELLOW; Urine Glucose NEGATIVE (NEG); Urine Protein NEGATIVE (NEG); Urine Specific Gravity <=1.005 (1.005-1.030); Urine Urobilinogen 0.2 mg/dL (0.2-1.0)
[2018-07-14 19:16] LABS: Urine Microscopic Reflex ORDER UMIC
[2018-07-14 19:32] LABS: Urine Bacteria <20 /HPF (<20); Urine Culture Reflex Order NOT NEEDED; Urine RBC <5 /HPF (NONE SEEN)
[2018-07-14] MEDS: DOCUSATE NA 100 MG CAP PO SCH (21:12)
--- NOTE | 2018-07-14 22:46 | RAD REPORT ---
EXAM DESCRIPTION: CT - Thorax W/ Con CLINICAL HISTORY: Chest pain Possible pneumonia pleural effusion COMPARISON: No comparisonsNo comparisons FINDINGS: Moderate airspace opacity is present in the right lung base with a small right pleural eff usion, likely representing pneumonia. Small left pleural effusion with small area of infiltrate/devel oping pneumonia is also seen in the left base also suspected. No pneumothorax. No axillary, mediastinal or hilar adenopathy. A very severe scoliosis of the thoracic spine concavity to the right. No gross upper abdominal findin g. All CT scans are performed using dose optimization technique as appropriate and may include automated exposure control or mA/KV adjustment according to patient size. IMPRESSION: Moderate airspace opacity in the right lower lobe with small right pleural effusion like ly represents pneumonia. Small left pleural effusion with probable small early pneumonia in the left lung base as well. Severe dextroscoliosis of the thoracic spine.
[2018-07-14] MEDS: ACETAMINOPHEN 325 MG TABLET PO PRN (23:04)
[2018-07-15] MEDS: Meropenem 500 MG in NA CHLORIDE 0.9% 100 ML IV SCH ×3 (01:25→17:55)
[2018-07-15] MEDS ORDERED: VANCOMYCIN 1.25 GM in NA CHLORIDE 0.9% 250 ML IVPB SCH (03:00)
[2018-07-15 06:08] LABS: Absolute Lymphocytes (CBC) 2.9 K/uL (0.7-4.9); Absolute Monocytes 1.1 K/uL (0.1-1.3); Absolute Neutrophil 8.7 K/uL (1.8-8.0); Basophils % 0.6 % (0-1.3); Eosinophils % 3.3 % (0-4.4); Hematocrit 30.2 % (36.0-45.0); Lymphocytes % 22.3 % (15.3-44.8); MPV 10.1 fL (7.6-11.3); RBC Red Blood Cell Count 3.85 M/uL (3.86-4.86)
[2018-07-15 06:10] LABS: BUN Blood Urea Nitrogen 7 mg/dL (7-18); Bicarbonate 35 mmol/L (21-32); Glucose Level 78 mg/dL (74-106); Potassium 3.8 mmol/L (3.5-5.1); Sodium Level 140 mmol/L (136-145)
[2018-07-15] MEDS: VANCOMYCIN 1.25 GM in NA CHLORIDE 0.9% 250 ML IVPB SCH ×2 (06:35→18:03)
[2018-07-15 06:47] LABS: Magnesium 2.5 mg/dL (1.8-2.4); Phosphorus 3.2 mg/dL (2.5-4.9)
[2018-07-15] MEDS ORDERED: KCL 20 MEQ/100 mL IVPB 20 MEQ/100 ML BAG IV SCH (07:00)
[2018-07-15] MEDS: DOCUSATE NA 100 MG CAP PO SCH ×2 (08:37→20:16)
[2018-07-15] MEDS: ENOXAPARIN 40 MG/0.4 ML SQ SCH (08:37)
[2018-07-15] MEDS: levETIRAcetam 500 MG/5 ML OSYR PO SCH ×2 (08:38→20:16)
[2018-07-15] MEDS: BACLOFEN 10 MG TAB PO SCH ×3 (08:38→20:16)
[2018-07-15] MEDS: MUCINEX DM 12HR.SR TAB PO SCH (08:39)
[2018-07-15] MEDS: GABAPENTIN 300 MG CAP PO SCH ×3 (09:00→20:16)
[2018-07-15 09:22] LABS: Protime INR 1.28
--- NOTE | 2018-07-15 13:25 | PN ---
Date of Progress Note: 07/15/2018 Subjective: The patient is seen and examined. Chart reviewed and case discussed with RN and Dr. Kirstin doshi. The patient is still in the ICU, had fever of 101.4 last night, has improved since yesterday. CT scan does show pleural effusion, which may need to be tapped. Medications: List reviewed. Physical Examination: Vital Signs: Temperature 98.5, heart rate 96, blood pressure 89/62, respirations 14, O2 100% on 2 L via nasal cannula. General: Asleep but arousable. Does not appear to be in any acute distress. Ill-appearing female. CV: S1, S2. Sinus tachycardia. Peripheral pulses present. Respiratory: Diminished breath sounds, worse on the right. Gastrointestinal: Abdomen is soft, nontender, nondistended. Positive bowel sounds. Extremities: No clubbing or cyanosis. The patient has peripheral edema in bilateral upper and lower extremities. Neuro: Paraplegia. Laboratory Data: Sodium 140, potassium 3.8, chloride 102, CO2 of 35, BUN 7, creatinine 0.32, glucose 78, calcium 8.5, phosphorus 3.2, magnesium 2.5. INR pending. WBC 13.2, H and H 9.6 and 30.2, plate lets 405, neutrophils 65%. Blood cultures, no growth. Final fungal blood culture is pending. CT sc an of the chest shows moderate airspace opacity in the right lower lobe with small right pleural effu rolando, likely represents pneumonia, small left pleural effusion with probable small early pneumonia in the left lung base as well. Severe dextroscoliosis of the thoracic spine. Assessment And Plan: A 28-year-old female with: 1.Sepsis secondary to pneumonia. The patient's white count is improving, now back on IV antibiotics . Cultures are negative to date. Fungal cultures have been obtained. 2.Pneumonia, bilateral, possible aspiration pneumonia, on 10 days of meropenem. White count is impr oving. CT scan shows bilateral effusions. 3.Acute respiratory failure, now weaned off BiPAP, currently on 2 L. 4.Bilateral pleural effusions. Ultrasound has been ordered by Pulmonology for possible thoracentesi s by IR. 5.Severe protein-calorie malnutrition. Continue protein supplements. 6.Paraplegia. Continue offloading. 7.Sacral decubitus ulcer, stage I. 8.History of traumatic brain injury. 9.Acute anemia likely iron deficiency. The patient has been transfused 1 unit of PRBCs. Hemoccult is still pending. No bowel movement. The patient will benefit from IV iron infusions in the future. 10.Hypernatremia, corrected. 11.Deep venous thrombosis prophylaxis with Lovenox. Plan: Ultrasound for pleural effusion for possible thoracentesis. /LEE Voice ID: [id number] Report ID: [id number]
--- NOTE | 2018-07-15 14:10 | RAD REPORT ---
EXAM DESCRIPTION: US - Chest - 07/15/2018 1:58 pm CLINICAL HISTORY: Pleural effusion COMPARISON: CT chest July 14 FINDINGS: Sonographic evaluation of the right chest was performed. A small pleural effusion was iden tifiable in the lower right posterior chest. Adjacent atelectatic lung is present. Given the relative ly small amount of fluid in the right lung base and patient immobility, ultrasound-guided thoracentes is is not likely obtainable. IMPRESSION: Small right lung base pleural effusion with adjacent lung parenchymal atelectasis.
[2018-07-15] MEDS: ACETAMINOPHEN 325 MG TABLET PO PRN (17:45)
[2018-07-16] MEDS: Meropenem 500 MG in NA CHLORIDE 0.9% 100 ML IV SCH ×3 (01:04→17:05)
[2018-07-16] MEDS: ALBUTEROL 2.5 MG/3 ML NEB SOL IH PRN (05:25)
[2018-07-16 06:19] LABS: Absolute Lymphocytes (CBC) 3.2 K/uL (0.7-4.9); Absolute Monocytes 0.8 K/uL (0.1-1.3); Absolute Neutrophil 5.7 K/uL (1.8-8.0); Basophils % 0.6 % (0-1.3); Eosinophils % 3.3 % (0-4.4); Hematocrit 29.3 % (36.0-45.0); Lymphocytes % 31.8 % (15.3-44.8); RBC Red Blood Cell Count 3.73 M/uL (3.86-4.86)
[2018-07-16 06:33] LABS: BUN Blood Urea Nitrogen 6 mg/dL (7-18); Bicarbonate 32 mmol/L (21-32); Glucose Level 87 mg/dL (74-106); Magnesium 2.5 mg/dL (1.8-2.4); Potassium 3.9 mmol/L (3.5-5.1); Sodium Level 142 mmol/L (136-145)
[2018-07-16] MEDS ORDERED: KCL 20 MEQ/100 mL IVPB 20 MEQ/100 ML BAG IV SCH (07:00)
[2018-07-16] MEDS: VANCOMYCIN 1.25 GM in NA CHLORIDE 0.9% 250 ML IVPB SCH ×2 (07:37→18:21)
[2018-07-16] MEDS: levETIRAcetam 500 MG/5 ML OSYR PO SCH ×2 (08:34→20:16)
[2018-07-16] MEDS: DOCUSATE NA 100 MG CAP PO SCH ×2 (08:34→20:17)
[2018-07-16] MEDS: GABAPENTIN 300 MG CAP PO SCH ×3 (08:35→20:16)
[2018-07-16] MEDS: ENOXAPARIN 40 MG/0.4 ML SQ SCH (08:35)
[2018-07-16] MEDS: BACLOFEN 10 MG TAB PO SCH ×3 (08:35→20:17)
--- NOTE | 2018-07-16 09:09 | P.PN ---
Subjective Date of Service: 07/16/18 Chief Complaint: Borderline fever Patient is doing better has coughed up some sputum has borderline temperature white count is back to normal cultures are so far negative Review of Systems is unable to be obtained Physical Examination - Vital Signs Temperature: 99.4 F Blood Pressure: 100/68 Pulse: 94 Respirations: 17 Pulse Ox (%): 100 - Physical Exam General: Alert, Cooperative Respiratory: Clear to auscultation bilaterally, Diminished Assessment & Plan - Problems (Diagnosis) (1) Bilateral pneumonia Current Visit: Yes Status: Acute Plan: Patient is improving white count has declined has some borderline temperature which is also improving cultures are so far negative sputum cultures ordered repeat arterial blood gases she has hypoventilation and may benefit from a noninvasive ventilator a BiPAP mild microcytic anemia patient probably has underlying iron deficient anemia may benefit from some iron transfusion ultrasound shows a small pleural effusion unable to do a thoracentesis as per radiology continue to monitor possible discharge with 2 weeks of IV antibiotics Qualifiers: Pneumonia type: due to unspecified organism Lung location: unspecified part of lung Qualified Code(s): J18.9 - Pneumonia, unspecified organism
[2018-07-16 10:14] LABS: Arterial Blood Carboxyhemoglob 1.4 % (0-1.5); Blood Gas Oxyhemoglobin 95.2 % (94-97)
--- NOTE | 2018-07-16 11:40 | RAD REPORT ---
EXAM DESCRIPTION: RAD - Chest Single View - 07/16/2018 11:34 am CLINICAL HISTORY: Fever, pneumonia COMPARISON: July 14 imaging chest films and CT chest imaging TECHNIQUE: AP portable chest image was obtained 1131 hours . FINDINGS: Small to moderate sized pleural effusion is seen on the right. On CT imaging this is seen as a relatively thin crescent-shaped collection along the posterior aspect of the right hemithorax. T here is right lower lobe atelectasis and partial right upper lobe atelectasis. Minimal fluid and atel ectasis still present on the left. Heart size is stable. No upper lobe vascular engorgement. Right-si de PICC line remains in place. No pneumothorax. No acute bony abnormality seen. No acute aortic findi ngs suspected. IMPRESSION: Right pleural effusion with right-sided atelectasis similar to comparison. Minimal left fluid in the left atelectasis.
[2018-07-16] MEDS: FERROUS SULFATE 325 MG TAB PO SCH (12:19)
[2018-07-16] MEDS: ACETAMINOPHEN 325 MG TABLET PO PRN (12:23)
[2018-07-16] MEDS: TRAMADOL HCL 50 MG TAB PO PRN (15:28)
--- NOTE | 2018-07-16 18:17 | P.PN ---
Subjective Date of Service: 07/16/18 Chief Complaint: Borderline fever Subjective: No C/O voiced, Improving Patient seen and examined at bedside. No family at bedside. Chart reviewed and case discussed with nursing staff. Patient continues to remain in the ICU. She continues to fluctuations of temperature, T-max of 101 at night. Continues to have Secretions. Review of Systems 10-point ROS is otherwise unremarkable Physical Examination - Vital Signs Temperature: 99.4 F Blood Pressure: 93/62 Pulse: 99 Respirations: 15 Pulse Ox (%): 100 - Physical Exam General: In no apparent distress, Other (Ill-appearing) HEENT: Atraumatic, PERRLA, EOMI Neck: Supple, JVD not distended Respiratory: Diminished Cardiovascular: Normal S1 S2, Irregular heart rate/rhythm (Sinus tachycardia) Gastrointestinal: Normal bowel sounds, No tenderness Integumentary: Other (Sacral ulcer) Neurological: Other (Paraplegia) Lymphatics: No axilla or inguinal lymphadenopathy Assessment And Plan - Current Problems (Diagnosis) (1) Sepsis Current Visit: Yes Status: Acute Plan: Improving. Continue IV antibiotics blood cultures negative to date. Fungal cultures pending Patient continues to have fluctuating temperatures. Continue to monitor in the ICU Qualifiers: Sepsis type: sepsis due to unspecified organism Qualified Code(s): A41.9 - Sepsis, unspecified organism (2) Bilateral pneumonia Current Visit: Yes Status: Suspected Plan: Suspected aspiration pneumonia. Continue IV antibiotics: meropenem times 10 days oxygen per protocol, as needed Repeat chest x-ray tomorrow Qualifiers: Pneumonia type: aspiration pneumonia Lung location: unspecified part of lung (3) Altered mental status Current Visit: Yes Status: Acute Plan: Likely secondary to infection and sepsis. Hemodynamically stable CT scan negative for any acute abnormalities. Now back to baseline. (4) Dehydration Current Visit: Yes Status: Resolved Plan: Resolved (5) Quadriplegia Current Visit: No Status: Chronic (6) TBI (traumatic brain injury) Current Visit: No Status: Chronic (7) Protein calorie malnutrition Current Visit: Yes Status: Acute Plan: Continue protein supplementation Qualifiers: Protein-calorie malnutrition severity: severe Qualified Code(s): E43 - Unspecified severe protein-calorie malnutrition (8) Sacral ulcer Current Visit: Yes Status: Acute Plan: Continue offloading and rotating Qualifiers: Non-pressure ulcer stage: limited to breakdown of skin Qualified Code(s): L98.421 - 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 Pulmonology award, appreciate recommendations. (10) Acute on chronic anemia Current Visit: Yes Status: Acute Plan: Likely secondary to iron-deficiency anemia. We will start iron supplementation via button. Continue to monitor H&H (11) Hypernatremia Current Visit: Yes Status: Resolved Plan: Resolved - Plan DVT prophylaxis: Lovenox GI prophylaxis: None Diet: Tube feeds Disposition: Continue to monitor in the ICU. Pending symptomatic improvement
[2018-07-17] MEDS: Meropenem 500 MG in NA CHLORIDE 0.9% 100 ML IV SCH ×3 (00:45→15:59)
[2018-07-17] MEDS: TRAMADOL HCL 50 MG TAB PO PRN ×2 (01:17→22:20)
[2018-07-17 05:57] LABS: BUN Blood Urea Nitrogen 6 mg/dL (7-18); Bicarbonate 32 mmol/L (21-32); Glucose Level 77 mg/dL (74-106); Magnesium 2.6 mg/dL (1.8-2.4); Phosphorus 3.8 mg/dL (2.5-4.9); Potassium 3.9 mmol/L (3.5-5.1); Sodium Level 141 mmol/L (136-145)
[2018-07-17] MEDS ORDERED: POTASSIUM 25 MEQ EFFERV TAB PO ONE (05:59)
[2018-07-17] MEDS: VANCOMYCIN 1.25 GM in NA CHLORIDE 0.9% 250 ML IVPB SCH ×2 (06:14→18:36)
--- NOTE | 2018-07-17 07:27 | RAD REPORT ---
EXAM DESCRIPTION: RAD - Chest Single View - 07/17/2018 7:11 am CLINICAL HISTORY: Pneumonia COMPARISON: July 16 TECHNIQUE: AP portable chest image was obtained 0708 hours . FINDINGS: Lung volumes are similar to comparison. Right-sided pleural effusion with right-sided atel ectasis not clearly different. Infiltrate could be masked within atelectasis. No new or progressive l eft lung base finding. PICC line remains in place. Heart and vasculature are normal. No measurable pl eural effusion and no pneumothorax. No acute bony abnormality seen. No acute aortic findings suspecte d. IMPRESSION: Stable chest from prior day imaging.
[2018-07-17] MEDS: GABAPENTIN 300 MG CAP PO SCH ×3 (08:35→20:07)
[2018-07-17] MEDS: levETIRAcetam 500 MG/5 ML OSYR PO SCH ×2 (08:35→20:07)
[2018-07-17] MEDS: DOCUSATE NA 100 MG CAP PO SCH ×2 (08:35→20:07)
[2018-07-17] MEDS: FERROUS SULFATE 325 MG TAB PO SCH (08:35)
[2018-07-17] MEDS: ENOXAPARIN 40 MG/0.4 ML SQ SCH (08:35)
[2018-07-17] MEDS: BACLOFEN 10 MG TAB PO SCH ×3 (08:36→20:07)
[2018-07-17 09:42] LABS: Arterial Blood Carboxyhemoglob 1.7 % (0-1.5); Blood Gas Oxyhemoglobin 89.9 % (94-97); Blood O2 Saturation 91.8 % (92-98.5)
[2018-07-17] MEDS: ACETAMINOPHEN 325 MG TABLET PO PRN ×2 (11:10→20:30)
--- NOTE | 2018-07-17 12:28 | P.PN ---
Subjective Date of Service: 07/17/18 Chief Complaint: Sepsis Patient is doing very well she is more alert responsive history at the bedside I had having a conversation final signs all stable sister requesting a Consul in a follow up with a neurologist Review of Systems is unable to be obtained Physical Examination - Vital Signs Temperature: 100.4 F Blood Pressure: 100/66 Pulse: 110 Respirations: 17 Pulse Ox (%): 100 - Physical Exam General: Alert, Cooperative Neck: Supple Respiratory: Clear to auscultation bilaterally Assessment & Plan - Problems (Diagnosis) (1) Bilateral pneumonia Current Visit: Yes Status: Suspected Plan: Patient is doing much better still has a borderline fever is quite possible that she has underlying fungal infection I suggest also starting her on Diflucan patient is hypoxic borderline hypercapnic on room-air blood gases Qualifiers: Pneumonia type: aspiration pneumonia Lung location: unspecified part of lung (2) Respiratory failure Current Visit: Yes Status: Acute Plan: Patient is 28 years of age with traumatic brain injury in quadriplegic she has hypoxic hypercapnic 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
[2018-07-17] MEDS: FLUCONAZOLE 400 MG IVPB 400 MG/200 ML BAG IV SCH (13:05)
--- NOTE | 2018-07-17 14:47 | P.PN ---
Subjective Date of Service: 07/17/18 Chief Complaint: Sepsis Subjective: Improving Patient seen and examined at bedside. No family at bedside. Chart reviewed and case discussed with nursing staff. He is also discussed with sister via telephone. Patient quite alert this morning. She continues to fluctuations of temperature , T-max of 100.6 at night. Review of Systems 10-point ROS is otherwise unremarkable Physical Examination - Vital Signs Temperature: 100.4 F Blood Pressure: 100/66 Pulse: 110 Respirations: 17 Pulse Ox (%): 100 - Physical Exam General: In no apparent distress, Other (More alert, aware. Was talking earlier ) HEENT: PERRLA, EOMI Respiratory: Clear to auscultation bilaterally, Normal air movement Cardiovascular: Regular rate/rhythm, Normal S1 S2 Gastrointestinal: Normal bowel sounds, No tenderness Neurological: Other (Quadriplegic) Assessment And Plan - Current Problems (Diagnosis) (1) Sepsis Current Visit: Yes Status: Acute Plan: Improved. Continue IV antibiotics blood cultures negative to date. Fungal cultures pending Patient continues to have fluctuating temperatures. Patient started on Diflucan for fungal coverage. Continue to monitor in the ICU Qualifiers: Sepsis type: sepsis due to unspecified organism Qualified Code(s): A41.9 - Sepsis, unspecified organism (2) Bilateral pneumonia Current Visit: Yes Status: Suspected Plan: Suspected aspiration pneumonia. Continue IV antibiotics: meropenem times 10 days oxygen per protocol, as needed Qualifiers: Pneumonia type: aspiration pneumonia Lung location: unspecified part of lung (3) Altered mental status Current Visit: Yes Status: Acute Plan: Likely secondary to infection and sepsis. Hemodynamically stable CT scan negative for any acute abnormalities. Now back to baseline. (4) Dehydration Current Visit: Yes Status: Resolved Plan: Resolved (5) Quadriplegia Current Visit: No Status: Chronic (6) TBI (traumatic brain injury) Current Visit: No Status: Chronic Plan: Neurology consulted, per family request (7) Protein calorie malnutrition Current Visit: Yes Status: Acute Plan: Continue protein supplementation Qualifiers: Protein-calorie malnutrition severity: severe Qualified Code(s): E43 - Unspecified severe protein-calorie malnutrition (8) Sacral ulcer Current Visit: Yes Status: Acute Plan: Continue offloading and rotating Qualifiers: Non-pressure ulcer stage: limited to breakdown of skin Qualified Code(s): L98.421 - 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 Pulmonology award, appreciate recommendations. (10) Acute on chronic anemia Current Visit: Yes Status: Acute Plan: Likely secondary to iron-deficiency anemia. We will start iron supplementation via button. Continue to monitor H&H (11) Hypernatremia Current Visit: Yes Status: Resolved Plan: Resolved - Plan DVT prophylaxis: Lovenox GI prophylaxis: None Diet: Tube feeds Disposition: Continue to monitor in the ICU. Pending symptomatic improvement. Continues remain stable overnight, will transfer to the floor tomorrow morning. Anticipate discharge home in the next 48 hr, pending clinical improvement.
[2018-07-18] MEDS: Meropenem 500 MG in NA CHLORIDE 0.9% 100 ML IV SCH ×3 (00:32→17:00)
[2018-07-18] MEDS: VANCOMYCIN 1.25 GM in NA CHLORIDE 0.9% 250 ML IVPB SCH ×2 (06:15→20:11)
[2018-07-18 06:23] LABS: BUN Blood Urea Nitrogen 7 mg/dL (7-18); Bicarbonate 33 mmol/L (21-32); Glucose Level 72 mg/dL (74-106); Magnesium 2.5 mg/dL (1.8-2.4); Phosphorus 3.9 mg/dL (2.5-4.9); Potassium 4.5 mmol/L (3.5-5.1); Sodium Level 142 mmol/L (136-145)
[2018-07-18 07:25] LABS: Absolute Monocytes 0.7 K/uL (0.1-1.3); Absolute Neutrophil 5.2 K/uL (1.8-8.0); Basophils % 0.9 % (0-1.3); Eosinophils % 1.8 % (0-4.4); Hematocrit 29.2 % (36.0-45.0); Lymphocytes % 24.7 % (15.3-44.8); MPV 10.4 fL (7.6-11.3); Monocytes % 9.1 % (3.3-12.3)
[2018-07-18] MEDS: DOCUSATE NA 100 MG CAP PO SCH ×2 (07:46→20:52)
[2018-07-18] MEDS: GABAPENTIN 300 MG CAP PO SCH ×3 (07:46→20:52)
[2018-07-18] MEDS: ACETAMINOPHEN 325 MG TABLET PO PRN (07:46)
[2018-07-18] MEDS: FERROUS SULFATE 325 MG TAB PO SCH (07:46)
[2018-07-18] MEDS: ENOXAPARIN 40 MG/0.4 ML SQ SCH (07:47)
[2018-07-18] MEDS: BACLOFEN 10 MG TAB PO SCH ×3 (07:47→20:52)
[2018-07-18] MEDS: levETIRAcetam 500 MG/5 ML OSYR PO SCH ×2 (07:47→20:55)
--- NOTE | 2018-07-18 11:15 | P.PN ---
Subjective Date of Service: 07/18/18 Chief Complaint: Sepsis Subjective: Improving Patient seen and examined at bedside. No family at bedside. Chart reviewed and case discussed with nursing staff. He is also discussed with sister via telephone. Patient alert this morning. Talks quite a lot when sister is there. She continues to fluctuations of temperature, T-max of 101 this morning Review of Systems 10-point ROS is otherwise unremarkable Physical Examination - Vital Signs Temperature: 100 F Blood Pressure: 97/65 Pulse: 114 Respirations: 14 Pulse Ox (%): 94 - Physical Exam General: Alert, In no apparent distress, Other (Answers questions by blinking;) Respiratory: Clear to auscultation bilaterally, Normal air movement Cardiovascular: Regular rate/rhythm, Normal S1 S2 Gastrointestinal: Normal bowel sounds, No tenderness Musculoskeletal: Other (Quadriplegic) Assessment And Plan - Current Problems (Diagnosis) (1) Sepsis Current Visit: Yes Status: Acute Plan: Improved. Continue IV antibiotics blood cultures negative to date. Fungal cultures pending Patient continues to have fluctuating temperatures. Continue with Diflucan for fungal coverage. Qualifiers: Sepsis type: sepsis due to unspecified organism Qualified Code(s): A41.9 - Sepsis, unspecified organism (2) Bilateral pneumonia Current Visit: Yes Status: Suspected Plan: Suspected aspiration pneumonia. Continue IV antibiotics: meropenem times 10 days oxygen per protocol, as needed Qualifiers: Pneumonia type: aspiration pneumonia Lung location: unspecified part of lung (3) Altered mental status Current Visit: Yes Status: Acute Plan: Likely secondary to infection and sepsis. Hemodynamically stable CT scan negative for any acute abnormalities. Now back to baseline. (4) Dehydration Current Visit: Yes Status: Resolved Plan: Resolved (5) Quadriplegia Current Visit: No Status: Chronic (6) TBI (traumatic brain injury) Current Visit: No Status: Chronic Plan: Neurology consulted, per family request (7) Protein calorie malnutrition Current Visit: Yes Status: Acute Plan: Continue protein supplementation Qualifiers: Protein-calorie malnutrition severity: severe Qualified Code(s): E43 - Unspecified severe protein-calorie malnutrition (8) Sacral ulcer Current Visit: Yes Status: Acute Plan: Continue offloading and rotating Qualifiers: Non-pressure ulcer stage: limited to breakdown of skin Qualified Code(s): L98.421 - 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 Pulmonology award, appreciate recommendations. (10) Acute on chronic anemia Current Visit: Yes Status: Acute Plan: Likely secondary to iron-deficiency anemia. We will start iron supplementation via button. Continue to monitor H&H (11) Hypernatremia Current Visit: Yes Status: Resolved Plan: Resolved - Plan DVT prophylaxis: Lovenox GI prophylaxis: None Diet: Tube feeds Disposition: Transfer to the floor. Pending symptomatic improvement. Anticipate discharge home in the next 24 hr, pending clinical improvement.
[2018-07-18] MEDS: FLUCONAZOLE 400 MG IVPB 400 MG/200 ML BAG IV SCH (11:42)
[2018-07-18] MEDS: TRAMADOL HCL 50 MG TAB PO PRN (11:44)
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
[2018-07-19] MEDS: Meropenem 500 MG in NA CHLORIDE 0.9% 100 ML IV SCH ×3 (00:50→16:16)
[2018-07-19] MEDS ORDERED: NA CHLORIDE 0.9% 250 ML ONE (01:02)
[2018-07-19] MEDS: VANCOMYCIN 1.25 GM in NA CHLORIDE 0.9% 250 ML IVPB SCH ×2 (06:02→06:32)
[2018-07-19] MEDS: BACLOFEN 10 MG TAB PO SCH ×3 (09:41→21:52)
[2018-07-19] MEDS: GABAPENTIN 300 MG CAP PO SCH ×3 (09:41→21:51)
[2018-07-19] MEDS: ENOXAPARIN 40 MG/0.4 ML SQ SCH (09:42)
[2018-07-19] MEDS: levETIRAcetam 500 MG/5 ML OSYR PO SCH ×2 (09:42→21:50)
[2018-07-19] MEDS: DOCUSATE NA 100 MG CAP PO SCH ×2 (09:42→21:51)
--- NOTE | 2018-07-19 10:46 | P.PN ---
Subjective Date of Service: 07/19/18 Chief Complaint: Sepsis Patient is doing much better transfer to the floor alert responsive cooperative no fever white count is also declining seen by neurology vital signs stable Review of Systems is unable to be obtained Physical Examination - Vital Signs Temperature: 98.3 F Blood Pressure: 96/50 Pulse: 108 Respirations: 18 Pulse Ox (%): 96 - Physical Exam General: Alert, Cooperative Respiratory: Clear to auscultation bilaterally, Diminished Assessment & Plan - Problems (Diagnosis) (1) Bilateral pneumonia Current Visit: Yes Status: Suspected Plan: Doing much better continue with present antibiotics continue with anti fungal therapy Qualifiers: Pneumonia type: aspiration pneumonia Lung location: unspecified part of lung (2) Respiratory failure Current Visit: Yes Status: Acute Plan: Pt has chronic respiratory failure secondary to dramatic brain injury as also quadriplegic and hypercapnic and will benefit from BiPAP Qualifiers: Respiratory failure complication: hypoxia and hypercapnia
[2018-07-19] MEDS: ACETAMINOPHEN 325 MG TABLET PO PRN (12:00)
[2018-07-19] MEDS: FLUCONAZOLE 400 MG IVPB 400 MG/200 ML BAG IV SCH (12:01)
[2018-07-19] MEDS ORDERED: ALTEPLASE 2 MG/VIAL IV ONE (12:55)
[2018-07-19] MEDS ORDERED: ALTEPLASE 2 MG/VIAL IV SCH (13:00)
[2018-07-19] MEDS: VANCOMYCIN/NS 1 gm 1 GM/250 ML BAG IV SCH (15:07)
--- NOTE | 2018-07-19 16:21 | P.PN ---
Subjective Date of Service: 07/19/18 Chief Complaint: Sepsis Subjective: No C/O voiced, Improving Patient seen and examined at bedside. No family at bedside. Chart reviewed and case discussed with nursing staff. He is also discussed with sister via telephone. Patient alert this morning. Low-grade fever noted overnight. Patient continues to be on IV antibiotics and Diflucan. Blood cultures and fungal culture still pending. Review of Systems 10-point ROS is otherwise unremarkable Physical Examination - Vital Signs Temperature: 97.7 F Blood Pressure: 106/56 Pulse: 129 Respirations: 20 Pulse Ox (%): 98 - Physical Exam General: In no apparent distress, Other (Alert and following commands at baseline with eyes/blinking) Respiratory: Clear to auscultation bilaterally, Normal air movement Cardiovascular: Regular rate/rhythm, Normal S1 S2 Neurological: Other (Quadriplegic) Assessment And Plan - Current Problems (Diagnosis) (1) Sepsis Current Visit: Yes Status: Acute Plan: Improved. Continue IV antibiotics blood cultures negative to date. Fungal cultures pending Patient continues to have fluctuating temperatures. Continue with Diflucan for fungal coverage. Qualifiers: Sepsis type: sepsis due to unspecified organism Qualified Code(s): A41.9 - Sepsis, unspecified organism (2) Bilateral pneumonia Current Visit: Yes Status: Suspected Plan: Suspected aspiration pneumonia. Continue IV antibiotics: meropenem times 10 days oxygen per protocol, as needed Qualifiers: Pneumonia type: aspiration pneumonia Lung location: unspecified part of lung (3) Altered mental status Current Visit: Yes Status: Acute Plan: Likely secondary to infection and sepsis. Hemodynamically stable CT scan negative for any acute abnormalities. Now back to baseline. (4) Dehydration Current Visit: Yes Status: Resolved Plan: Resolved (5) Quadriplegia Current Visit: No Status: Chronic (6) TBI (traumatic brain injury) Current Visit: No Status: Chronic Plan: Neurology consulted, per family request (7) Protein calorie malnutrition Current Visit: Yes Status: Acute Plan: Continue protein supplementation Qualifiers: Protein-calorie malnutrition severity: severe Qualified Code(s): E43 - Unspecified severe protein-calorie malnutrition (8) Sacral ulcer Current Visit: Yes Status: Acute Plan: Continue offloading and rotating Qualifiers: Non-pressure ulcer stage: limited to breakdown of skin Qualified Code(s): L98.421 - 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 Pulmonology award, appreciate recommendations. (10) Acute on chronic anemia Current Visit: Yes Status: Acute Plan: Likely secondary to iron-deficiency anemia. We will start iron supplementation via button. Continue to monitor H&H (11) Hypernatremia Current Visit: Yes Status: Resolved Plan: Resolved - Plan DVT prophylaxis: Lovenox GI prophylaxis: None Diet: Tube feeds Disposition: Pending symptomatic improvement, IV antibiotics set up and NIV set up. She will be discharged home once home on IV antibiotics and noninvasive ventilation set up. Social work on board
[2018-07-20] MEDS: Meropenem 500 MG in NA CHLORIDE 0.9% 100 ML IV SCH ×2 (01:13→08:43)
[2018-07-20] MEDS: ALBUTEROL 2.5 MG/3 ML NEB SOL IH PRN (08:04)
[2018-07-20] MEDS: VANCOMYCIN/NS 1 gm 1 GM/250 ML BAG IV SCH (08:43)
[2018-07-20] MEDS: ENOXAPARIN 40 MG/0.4 ML SQ SCH (08:44)
[2018-07-20] MEDS: DOCUSATE NA 100 MG CAP PO SCH (08:44)
[2018-07-20] MEDS: GABAPENTIN 300 MG CAP PO SCH (08:44)
[2018-07-20] MEDS: BACLOFEN 10 MG TAB PO SCH ×2 (08:45→11:13)
[2018-07-20] MEDS: levETIRAcetam 500 MG/5 ML OSYR PO SCH (08:46)
--- NOTE | 2018-07-20 09:46 | P.PN ---
Subjective Date of Service: 07/20/18 Chief Complaint: Sepsis Patient is doing much better she is very alert responsive cooperative sister at bedside complains of excessive secretion patient has a suction apparatus at home no fever Review of Systems is unable to be obtained Physical Examination - Vital Signs Temperature: 97.5 F Blood Pressure: 99/59 Pulse: 98 Respirations: 20 Pulse Ox (%): 95 - Physical Exam General: Alert, Cooperative Respiratory: Clear to auscultation bilaterally, Diminished Assessment & Plan - Problems (Diagnosis) (1) Bilateral pneumonia Current Visit: Yes Status: Acute Plan: Doing much better all cultures and negative I suggest converting her to Augmentin doxycycline for another 2 weeks in addition to Diflucan 400 mg a day for at least 2 weeks patient has been afebrile vital signs stable follow up with me in 2 weeks stable for disk Qualifiers: Pneumonia type: aspiration pneumonia Lung location: unspecified part of lung (2) Respiratory failure Current Visit: Yes Status: Acute Plan: Patient will qualify for noninvasive ventilator that there has been setup can be discharged home probably delivery to at home the paperwork as been filed patient has lot of secretions may benefit from a scopolamine patch Qualifiers: Respiratory failure complication: hypoxia and hypercapnia
[2018-07-20] MEDS: FLUCONAZOLE 400 MG IVPB 400 MG/200 ML BAG IV SCH (11:37)
--- NOTE | 2018-07-20 13:18 | P.DS ---
Admission Date: 07/08/18 Discharge Date: 07/20/18 Disposition: ROUTINE DISCHARGE Discharge Condition: FAIR Reason for Admission: Sepsis Consultations: Pulmonology Neurology - Problems (1) Sepsis Current Visit: Yes Status: Acute Qualifiers: Sepsis type: sepsis due to unspecified organism Qualified Code(s): A41.9 - Sepsis, unspecified organism (2) Bilateral pneumonia Current Visit: Yes Status: Acute Qualifiers: Pneumonia type: aspiration pneumonia Lung location: unspecified part of lung (3) Altered mental status Current Visit: Yes Status: Acute (4) Dehydration Current Visit: Yes Status: Resolved (5) Quadriplegia Current Visit: No Status: Chronic (6) TBI (traumatic brain injury) Current Visit: No Status: Chronic (7) Protein calorie malnutrition Current Visit: Yes Status: Acute Qualifiers: Protein-calorie malnutrition severity: severe Qualified Code(s): E43 - Unspecified severe protein-calorie malnutrition (8) Sacral ulcer Current Visit: Yes Status: Acute Qualifiers: Non-pressure ulcer stage: limited to breakdown of skin Qualified Code(s): L98.421 - 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 Per sister at bedside, who is the wire bender hand of patient, starting a few days ago she thought patient was not looking well. On Sunday, she got more congested. Sister tried regular interventions like Mucinex, suctioning, Tylenol, etc which did not seemed to help. Sputum production got progressively worse and this morning, patient was very sleepy, short of breath and limp. She was not really opening eyes, very sleepy and not talking. At baseline, sister states that she is more awake, intermittently does talk and is more alert. With sister called her home health nurse this morning, then EMS was called. In the ER, initially patient's vital signs 105/67, heart rate of 130, respirations of 14, afebrile at 99.3 and 88% on room air. Her chest x-ray was consistent with severe bilateral pneumonia. Her CT of the head was negative for any acute abnormalities. Her labs were remarkable for WBC count of 21, pro calcitonin elevated at 1.98. Her lactic acid was normal and her other labs were fairly unremarkable. She was given Rocephin and Levaquin along with IV fluids 3 L bolus. At the time of my exam, patient was this little more alert, per sister. Hemodynamically she was still stable for tachycardia. Hospital Course: She was admitted for management of severe bilateral pneumonia and sepsis. She was admitted to the . Sepsis protocol was started, she was started on IV antibiotics. Her blood cultures remained negative. She did continue to have fluctuating temperatures and she was started on Diflucan for fungal coverage. This seemed to improve her symptoms, her fever did break. Prior to discharge, she was afebrile for more than 24 hr. She was found to have bilateral pneumonia and she was started on IV antibiotics, meropenem. She continued to have these fevers even while on antibiotics there for antifungal coverage was started, which seemed to have improved her as noted above. He was provided with oxygen as needed. She is provided with other supportive care. Initially she was noted to have altered mental status, likely secondary to infection and sepsis. She returned completely back to baseline with interventions here. Neurology was consulted, per family request. No other medication changes were made to her regimen. She continued to have her feeds through the feeding tube as she was getting at home. She was noted to have some bilateral pleural effusions, an ultrasound was done and it was noted that there was not enough for IR drainage. She was symptomatically treated. Her symptoms improved throughout the stay. Mentation bautista, she returned to baseline, confirmed by family. As her blood cultures remained negative and she symptomatically improved, it was decided that IV meropenem is no longer needed at this time. She was discharged home on Augmentin, doxycycline and Diflucan. It was discussed with pharmacist how to provide these medications via feeding tube. Prescription was sent to the pharmacy. She was also sent a prescription for scopolamine to help with secretions. Treatment plan was discussed with patient's sister, who is her wire bender hand. She verbalized understanding. He was also noted that the patient may benefit from noninvasive ventilation. Social work was involved to help get this set up. Patient was then discharged home in a safe and stable manner. Vital Signs/Physical Exam: Temp Pulse Resp BP Pulse Ox 97.5 F 98 H 20 99/59 L 95 07/20/18 09:45 07/20/18 09:45 07/20/18 09:45 07/20/18 09:45 07/20/18 09:45 General: Alert, In no apparent distress, Other (At baseline mentation, able to track eyes and answer yes or no questions with blinking/eye tracking) Neck: Supple, JVD not distended Respiratory: Clear to auscultation bilaterally, Normal air movement Cardiovascular: Regular rate/rhythm, Normal S1 S2 Gastrointestinal: Normal bowel sounds, No tenderness Neurological: Other (Quadriplegic) Laboratory Data at Discharge: WBC 8.2 K/uL (4.3-10.9) D 07/18/18 07:06 Hgb 9.3 g/dL (12.0-15.0) L 07/18/18 07:06 Hct 29.2 % (36.0-45.0) L 07/18/18 07:06 Plt Count 435 K/uL (152-406) H 07/18/18 07:06 PT 15.0 SECONDS (9.5-12.5) H 07/15/18 08:58 INR 1.28 07/15/18 08:58 Sodium 142 mmol/L (136-145) 07/18/18 04:55 Potassium 4.5 mmol/L (3.5-5.1) 07/18/18 04:55 BUN 7 mg/dL (7-18) 07/18/18 04:55 Creatinine 0.41 mg/dL (0.55-1.3) L 07/19/18 14:05 Glucose 72 mg/dL (74-106) L 07/18/18 04:55 Phosphorus 3.9 mg/dL (2.5-4.9) 07/18/18 04:55 Magnesium 2.5 mg/dL (1.8-2.4) H 07/18/18 04:55 Total Bilirubin 0.2 mg/dL (0.2-1.0) 07/09/18 04:42 AST 18 U/L (15-37) 07/09/18 04:42 ALT 12 U/L (12-78) 07/09/18 04:42 Alkaline Phosphatase 99 U/L (45-117) 07/09/18 04:42 Home Medications: Albuterol Neb [Proventil 0.083% Neb Soln] 2.5 mg IH Q8H PRN 07/08/18 Baclofen 20 mg PO SEECOM 07/08/18 Diazepam [Valium] 10 mg PO SEECOM 07/08/18 Gabapentin 600 mg PO TID 07/08/18 Guaifenesin/Dextromethorphan [Mucinex Dm ER 600-30 mg Tablet] 1 tab PO BID 07/08 Ibuprofen/Diphenhydramine HCl [Advil Pm Liqui-Gels] 1 each PO BID PRN 07/08/18 levETIRAcetam [Levetiracetam] 5 ml PO BID 07/08/18 Amox/Clavulanate [Augmentin 500-125 mg Tab] 500 mg PO BID #24 tab 07/20/18 Doxycycline Monohydrate 100 mg PO BID #24 capsule 07/20/18 Fluconazole [Diflucan] 400 mg PO DAILY #14 tablet 07/20/18 Scopolamine [Transderm-Scop] 1 each TD DIRECTED #5 patch.td.3 07/20/18 New Medications: Amox/Clavulanate [Augmentin 500-125 mg Tab] 500 mg PO BID #24 tab Doxycycline Monohydrate 100 mg PO BID #24 capsule Fluconazole [Diflucan] 400 mg PO DAILY #14 tablet Scopolamine [Transderm-Scop] 1 each TD DIRECTED #5 patch.td.3 Patient Discharge Instructions: Please follow up with your primary care physcian in 2-3 days. Please follow up with your neurologist in 2 weeks. Please follow up with otolaryngology teacher in 2 weeks. Please return to the Emergency room for worseing symptoms. Activity: Ad danny Followup: Grey Sevilla MD [ACTIVE - CAN ADMIT] - Fernandez Garibay DO [Primary Care Provider] - Time spent managing pt's care (in minutes): 55
== END 2018-07-20 14:13 | disposition home health service (06) | DRG 871 ==
LOC: ER 09:57 → ERHOLD 12:17 → 3RD-ICU 17:14 → 2ND 07-12 17:50 → 3RD-ICU 07-13 16:45 → 2ND 07-18 14:27
PROVIDERS: ADMIT Family Medicine; ATTEND Family Medicine
PROC: 5A09457 Assistance with Respiratory Ventilation, 24-96 Consecutive Hours, Continuous Positive Airway Pressure (ICD-10-PCS; principal; 2018-07-10)
PROC: 30233N1 Transfusion of Nonautologous Red Blood Cells into Peripheral Vein, Percutaneous Approach (ICD-10-PCS; 2018-07-11)
PROC: 02HV33Z Insertion of Infusion Device into Superior Vena Cava, Percutaneous Approach (ICD-10-PCS; 2018-07-14)
DX: A41.9 Sepsis, unspecified organism (principal); J69.0 Pneumonitis due to inhalation of food and vomit; G82.50 Quadriplegia, unspecified; G93.41 Metabolic encephalopathy; J96.22 Acute and chronic respiratory failure with hypercapnia; J96.21 Acute and chronic respiratory failure with hypoxia; E46 Unspecified protein-calorie malnutrition; E87.0 Hyperosmolality and hypernatremia; J90 Pleural effusion, not elsewhere classified; E86.0 Dehydration; S06.9X0S Unspecified intracranial injury without loss of consciousness, sequela; Z93.1 Gastrostomy status; L89.151 Pressure ulcer of sacral region, stage 1; D50.9 Iron deficiency anemia, unspecified; Z68.22 Body mass index [BMI] 22.0-22.9, adult; Z88.5 Allergy status to narcotic agent
CPT/HCPCS: 36415; 36430; 51702; 70450; 71045; 71260; 76604; 76856; 80048; 80053; 80202; 81003; 81015; 81025; 82565; 82607; 82728; 82746; 82805; 82962; 83540; 83605; 83735; 84100; 84145; 84466; 84484; 85014; 85018; 85025; 85610; 86850; 86900; 86901; 87040; 87086; 87088; 87102; 87804; 93005; 94640; 94660; 96365; 96367; 96374; 96375; 99285; J0692; J0696; J1450; J1650; J2997; J3010; J3370; J7030; P9016; Q9967

== ENCOUNTER 2019-03-31 12:38 | Inpatient (IN) | payer OTHER ==
--- NOTE | 2019-03-31 13:43 | RAD REPORT ---
EXAM DESCRIPTION: RAD - Chest Single View - 03/31/2019 1:36 pm CLINICAL HISTORY: COUGH, weakness, hypotension COMPARISON: Chest Single View dated 07/17/2018 TECHNIQUE: AP portable chest image was obtained 03/31/2019 1:36 pm . FINDINGS: Lung volumes are relatively low. No peripheral mass or consolidation. Slightly hazy left l ower lung field opacification is present but not definitive for infiltrate. No failure or volume over load suspected. Heart and vasculature are normal. No measurable pleural effusion and no pneumothorax. Pronounced thoracolumbar scoliosis again noted. No acute bone findings seen. No acute aortic finding s suspected. IMPRESSION: No acute cardiopulmonary process confirmed. Subtle hazy opacification of the lower left lung field is doubtful for pneumonia but can be correlate d with clinical findings. Follow-up can be obtained as warranted.
[2019-03-31 14:40] LABS: Absolute Lymphocytes (CBC) 4.3 K/uL (0.7-4.9); Basophils % 0.4 % (0-1.3); Hematocrit 34.4 % (36.0-45.0); Lymphocytes % 32.1 % (15.3-44.8); MPV 11.8 fL (7.6-11.3)
[2019-03-31] MEDS ORDERED: NA CHLORIDE 0.9% 1,000 ML ONE (14:58)
[2019-03-31 15:12] LABS: ALT/SGPT 46 U/L (12-78); AST/SGOT 26 U/L (15-37); Albumin 3.5 g/dL (3.4-5.0); Alkaline Phosphatase 94 U/L (45-117); Amylase Level 36 U/L (25-115); BUN Blood Urea Nitrogen 12 mg/dL (7-18); Bicarbonate 30 mmol/L (21-32); Bilirubin Direct < 0.1 mg/dL (0-0.2); Bilirubin Total 0.3 mg/dL (0.2-1.0); CKMB Creatine Kinase MB < 1.0 ng/mL (0.3-3.6); Creatine Phosphokinase 31 U/L (26-192); Glucose Level 69 mg/dL (74-106); Lipase 106 U/L (73-393); Magnesium 2.2 mg/dL (1.8-2.4); NT PRO-BNP 7 pg/mL (<125); Potassium 4.2 mmol/L (3.5-5.1); Protein, Total 8.7 g/dL (6.4-8.2); Sodium Level 139 mmol/L (136-145); Troponin (Emerg Dept Use Only) < 0.02 ng/mL (0.0-0.045)
[2019-03-31 15:13] LABS: Urine Amorphous Sediment 1+ /HPF (NONE SEEN); Urine Bacteria <20 /HPF (<20); Urine Culture Reflex Order NOT NEEDED
[2019-03-31 15:13] LABS: Urine Blood 1+ (NEG); Urine Glucose NEGATIVE (NEG); Urine Protein NEGATIVE (NEG)
[2019-03-31 15:18] LABS: Protime INR 1.06
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
[2019-03-31] MEDS ORDERED: D50W 25 GM/50 ML SYRINGE/VIAL IV ONE (16:08)
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
[2019-03-31] MEDS ORDERED: ONDANSETRON 4 MG/2 ML VIAL IV PRN (18:19)
[2019-03-31] MEDS ORDERED: ALBUTEROL 2.5 MG/3 ML NEB SOL NEB PRN (18:19)
[2019-03-31] MEDS ORDERED: ACETAMINOPHEN 500 MG TAB PO PRN (18:19)
[2019-03-31] MEDS: BACLOFEN 10 MG TAB PO SCH ×2 (19:00→20:58)
[2019-03-31] MEDS: GABAPENTIN 300 MG CAP PO SCH (20:56)
[2019-03-31] MEDS: DIAZEPAM 5 MG TABLET PO SCH (20:56)
[2019-03-31] MEDS: levETIRAcetam 500 MG/5 ML OSYR FT SCH (20:57)
[2019-03-31] MEDS: KETOCONAZOLE CREAM 15 GM TUBE TOP SCH (20:57)
[2019-03-31] MEDS: ENOXAPARIN 40 MG/0.4 ML SQ SCH (20:57)
[2019-03-31] MEDS: NA CHLORIDE 0.9% 1,000 ML IV SCH (20:58)
[2019-03-31] MEDS: Meropenem 500 MG VIAL IV SCH (22:05)
[2019-03-31 23:01] VITALS: BMI 23.1
[2019-04-01] MEDS: Meropenem 500 MG VIAL IV SCH (00:59)
[2019-04-01] MEDS: NA CHLORIDE 0.9% 1,000 ML IV SCH ×4 (04:19→21:31)
[2019-04-01 05:32] LABS: Absolute Lymphocytes (CBC) 4.2 K/uL (0.7-4.9); Basophils % 0.6 % (0-1.3); Hematocrit 29.3 % (36.0-45.0); Lymphocytes % 38.6 % (15.3-44.8); MPV 11.4 fL (7.6-11.3); RBC Red Blood Cell Count 3.39 M/uL (3.86-4.86)
[2019-04-01 07:05] LABS: ALT/SGPT 41 U/L (12-78); AST/SGOT 23 U/L (15-37); Albumin 2.8 g/dL (3.4-5.0); Alkaline Phosphatase 74 U/L (45-117); BUN Blood Urea Nitrogen 9 mg/dL (7-18); Bicarbonate 26 mmol/L (21-32); Bilirubin Total 0.3 mg/dL (0.2-1.0); Glucose Level 72 mg/dL (74-106); Phosphorus 3.1 mg/dL (2.5-4.9); Potassium 3.7 mmol/L (3.5-5.1); Protein, Total 6.8 g/dL (6.4-8.2); Sodium Level 142 mmol/L (136-145)
[2019-04-01] MEDS ORDERED: POTASSIUM 25 MEQ EFFERV TAB FT ONE (09:00)
[2019-04-01] MEDS: KETOCONAZOLE CREAM 15 GM TUBE TOP SCH ×2 (09:00→20:42)
[2019-04-01] MEDS: GABAPENTIN 300 MG CAP PO SCH ×3 (09:35→20:10)
[2019-04-01] MEDS: levETIRAcetam 500 MG/5 ML OSYR FT SCH ×2 (09:35→20:10)
[2019-04-01] MEDS: BACLOFEN 10 MG TAB PO SCH ×4 (09:36→20:10)
[2019-04-01] MEDS: ENOXAPARIN 40 MG/0.4 ML SQ SCH (09:36)
[2019-04-01] MEDS: Meropenem 500 MG in NA CHLORIDE 0.9% 100 ML IV SCH ×2 (09:36→17:00)
--- NOTE | 2019-04-01 12:27 | EKG ---
Test Date: 2019-03-31 Test Time: 14:01:14 Laboratory Equipment Installer: DEANGELO MEASUREMENT RESULTS: Intervals: Rate: 81 UT: 158 QRSD: 76 QT: 378 QTc: 439 [place]: P: 49 UT: 158 QRS: 6 T: 37 INTERPRETIVE STATEMENTS: Normal sinus rhythm Normal ECG Compared to ECG 07/08/2018 09:55:36 Sinus tachycardia no longer present Electronically Signed On 04-01-19 12:26:40 [employer] CAR [employer] by Mj Kohli
[2019-04-01] MEDS: JEVITY 1.5 CAL LIQUID 1,000 ML BOT FT SCH ×2 (13:32→20:10)
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
[2019-04-01] MEDS: DIAZEPAM 5 MG TABLET PO SCH (20:11)
[2019-04-02] MEDS: Meropenem 500 MG in NA CHLORIDE 0.9% 100 ML IV SCH ×3 (00:08→16:56)
[2019-04-02 05:39] LABS: Absolute Lymphocytes (CBC) 3.5 K/uL (0.7-4.9); Basophils % 0.4 % (0-1.3); Hematocrit 28.6 % (36.0-45.0); Lymphocytes % 33.3 % (15.3-44.8); MPV 11.9 fL (7.6-11.3); RBC Red Blood Cell Count 3.32 M/uL (3.86-4.86)
[2019-04-02 05:48] LABS: BUN Blood Urea Nitrogen 6 mg/dL (7-18); Bicarbonate 29 mmol/L (21-32); Glucose Level 77 mg/dL (74-106); Potassium 3.7 mmol/L (3.5-5.1); Sodium Level 141 mmol/L (136-145)
[2019-04-02] MEDS: GABAPENTIN 300 MG CAP PO SCH ×3 (08:47→21:30)
[2019-04-02] MEDS: ENOXAPARIN 40 MG/0.4 ML SQ SCH (08:47)
[2019-04-02] MEDS: levETIRAcetam 500 MG/5 ML OSYR FT SCH ×2 (08:47→22:07)
[2019-04-02] MEDS: BACLOFEN 10 MG TAB PO SCH ×3 (08:47→16:55)
[2019-04-02] MEDS: JEVITY 1.5 CAL LIQUID 1,000 ML BOT FT SCH ×3 (08:48→22:09)
[2019-04-02] MEDS: KETOCONAZOLE CREAM 15 GM TUBE TOP SCH ×2 (09:00→21:00)
[2019-04-02] MEDS ORDERED: POTASSIUM 25 MEQ EFFERV TAB FT ONE (09:00)
[2019-04-02] MEDS: NA CHLORIDE 0.9% 1,000 ML IV SCH ×2 (10:15→22:04)
--- NOTE | 2019-04-02 10:49 | RAD REPORT ---
EXAM DESCRIPTION: RAD - Chest Single View - 04/02/2019 12:59 am CLINICAL HISTORY: PICC Placement COMPARISON: None. TECHNIQUE: AP Chest. FINDINGS: Right clavian PICC line is positioned in the upper right atrial region. No pneumothorax. Heart is normal in size. Normal cardiomediastinal contours when accounting for rotation. Normal pulmo nary vascularity. Lungs are clear. Pleural spaces are clear. There is significant dextroconvex thoracolumbar scoliotic curve. Unremarkable soft tissues. IMPRESSION: 1. Right subclavian PICC line placed without complication. No acute chest disease. Electronically signed by: Mackenzie Pugh DO 04/02/2019 12:50 AM RETAIL ACCOUNT MANAGER Due to temporary technical issues with the PACS/Fluency reporting system, reports are being signed by the in house radiologist as a courtesy to ensure prompt reporting. The interpreting radiologist is f ully responsible for the content of the report.
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
--- NOTE | 2019-04-02 14:40 | CON ---
History Of Present Illness: This is a 28-year-old female coming in with pseudomonas in sputum. Tara ent is currently being treated with meropenem, not in any acute distress, nonverbal as patient is aph asic. Opens eyes spontaneously and smiles as she was communicated. Chest x-ray showed mild hazy opa city in the left lower lobe. Past Medical History: Traumatic brain injury, gastric tube placement, left ovary removed, head surge ry, back surgery. Social History: Nonsmoker, nondrinker. Family History: Noncontributory. Medications: Meropenem. See MAR for other medications. Allergies: CODEINE. Review of Systems: Unable to obtain. Physical Examination: General: This is a 28-year-old female, lying in bed, not in any acute cardiopulmonary distress. Vital Signs: Temperature 97.7, pulse 80, respirations 16, blood pressure 102/58. HEENT: Unremarkable. Neck: Supple. Tracheostomy surgical wound noted. Lungs: Basal crackles. Heart: S1, S2. Regular. Abdomen: Soft. Bowel sounds present. Extremities: No edema. Laboratory Data: Shows WBC 10.4, down from 13.4, pneumonia leukocytosis; hemoglobin 9.1; platelets a re 220. Blood cultures, no growth in 24 hours. Chest x-ray shows subtle haziness and opacity in the left lower lobe, correlation with pneumonia. Assessment And Plan: This is a 28-year-old female with a traumatic brain injury 15 years ago, coming in with pseudomonas in sputum and leukocytosis and left lower lobe infiltrate on chest x-ray, most l ikely secondary to pneumonia. Continue treatment total course of 10 days. Can be switched according to her sensitivity. We will follow the patient as needed. Thank you, Dr. Urena and Dr. Jones, for consult. NF/MODL Voice ID: [id number] Report ID: [id number]
[2019-04-02] MEDS: DIAZEPAM 5 MG TABLET PO SCH (22:06)
[2019-04-03] MEDS: Meropenem 500 MG in NA CHLORIDE 0.9% 100 ML IV SCH ×2 (01:09→09:21)
[2019-04-03] MEDS ORDERED: NA CHLORIDE 0.9% 250 ML IV PRN (04:31)
[2019-04-03 05:11] LABS: Absolute Lymphocytes (CBC) 3.3 K/uL (0.7-4.9); Basophils % 0.4 % (0-1.3); Hematocrit 26.8 % (36.0-45.0); Lymphocytes % 39.2 % (15.3-44.8); MPV 11.5 fL (7.6-11.3); RBC Red Blood Cell Count 3.12 M/uL (3.86-4.86)
[2019-04-03 05:19] LABS: BUN Blood Urea Nitrogen 6 mg/dL (7-18); Bicarbonate 28 mmol/L (21-32); Glucose Level 74 mg/dL (74-106); Potassium 3.7 mmol/L (3.5-5.1); Sodium Level 143 mmol/L (136-145)
[2019-04-03] MEDS ORDERED: POTASSIUM 25 MEQ EFFERV TAB PO ONE (06:16)
[2019-04-03] MEDS: NA CHLORIDE 0.9% 1,000 ML IV SCH (07:19)
[2019-04-03] MEDS: KETOCONAZOLE CREAM 15 GM TUBE TOP SCH (09:00)
[2019-04-03] MEDS: levETIRAcetam 500 MG/5 ML OSYR FT SCH (09:21)
[2019-04-03] MEDS: JEVITY 1.5 CAL LIQUID 1,000 ML BOT FT SCH (09:22)
[2019-04-03] MEDS: GABAPENTIN 300 MG CAP PO SCH (09:23)
[2019-04-03] MEDS: ENOXAPARIN 40 MG/0.4 ML SQ SCH (09:23)
[2019-04-03] MEDS: BACLOFEN 10 MG TAB PO SCH (09:23)
[2019-04-03 10:43] VITALS: BP 100/62; O2SAT 96
[2019-04-03 12:24] VITALS: TEMP 97.5
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
== END 2019-04-03 12:17 | disposition home health service (06) | DRG 193 ==
LOC: ER 12:38 → ERHOLD 16:36 → 2ND 19:51
PROVIDERS: ADMIT Internal Medicine; ATTEND Family Medicine
DX: J18.9 Pneumonia, unspecified organism (principal); G82.50 Quadriplegia, unspecified; J15.1 Pneumonia due to Pseudomonas; Z87.820 Personal history of traumatic brain injury; R13.10 Dysphagia, unspecified; Z93.1 Gastrostomy status
CPT/HCPCS: 36415; 71045; 80048; 80053; 80076; 81003; 81015; 82150; 82550; 82553; 83605; 83690; 83735; 83880; 84100; 84145; 84484; 85025; 85610; 85730; 87040; 87086; 87088; 93005; 96365; 96366; 96375; 99285; J1650; J7030

== ENCOUNTER 2019-05-06 12:38 | Inpatient (IN) | payer OTHER ==
[2019-05-06] MEDS ORDERED: NA CHLORIDE 0.9% 2,000 ML ONE (12:56)
[2019-05-06] MEDS ORDERED: ACETAMINOPHEN 650MG/RECT SUPP PR ONE (12:56)
[2019-05-06] MEDS ORDERED: Levofloxacin500mg IV 500 MG/100 ML BAG IV ONE (12:56)
[2019-05-06] MEDS ORDERED: VANCOMYCIN/NS 1 gm 1 GM/250 ML BAG IV ONE (13:00)
[2019-05-06] MEDS ORDERED: NA CHLORIDE 0.9% 1,000 ML ONE (13:10)
[2019-05-06 13:11] LABS: Protime INR 1.15
[2019-05-06 13:12] LABS: Absolute Lymphocytes (CBC) 1.6 K/uL (0.7-4.9); Basophils % 0.2 % (0-1.3); Hematocrit 35.3 % (36.0-45.0); Lymphocytes % 9.3 % (15.3-44.8); RBC Red Blood Cell Count 4.04 M/uL (3.86-4.86)
--- NOTE | 2019-05-06 13:13 | RAD REPORT ---
EXAM DESCRIPTION: Jesus Single View05/06/2019 1:03 pm CLINICAL HISTORY: Fever COMPARISON: March 2019 FINDINGS: The lungs appear clear of acute infiltrate. The heart is normal size. Marked scoliosis IMPRESSION: No acute abnormalities displayed
[2019-05-06 13:21] LABS: ALT/SGPT 64 U/L (12-78); AST/SGOT 37 U/L (15-37); Albumin 3.4 g/dL (3.4-5.0); Alkaline Phosphatase 106 U/L (45-117); BUN Blood Urea Nitrogen 14 mg/dL (7-18); Bicarbonate 26 mmol/L (21-32); Bilirubin Direct 0.1 mg/dL (0-0.2); Bilirubin Total 0.3 mg/dL (0.2-1.0); Creatine Phosphokinase 35 U/L (26-192); Glucose Level 187 mg/dL (74-106); Lipase 90 U/L (73-393); Potassium 3.8 mmol/L (3.5-5.1); Protein, Total 8.2 g/dL (6.4-8.2); Sodium Level 136 mmol/L (136-145); Troponin (Emerg Dept Use Only) < 0.02 ng/mL (0.0-0.045)
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
[2019-05-06 15:03] LABS: Urine Bacteria <20 /HPF (<20); Urine RBC <5 /HPF (NONE SEEN)
[2019-05-06 15:04] LABS: Urine Blood TRACE (NEG); Urine Glucose NEGATIVE (NEG); Urine Protein NEGATIVE (NEG); Urine Specific Gravity <1.005 (1.005-1.030); Urine pH 5.5 (5.0-7.0)
[2019-05-06] MEDS ORDERED: ALBUTEROL 2.5 MG/3 ML NEB SOL NEB PRN (15:24)
[2019-05-06] MEDS ORDERED: ONDANSETRON 4 MG/2 ML VIAL IV PRN (15:24)
[2019-05-06] MEDS ORDERED: MORPHINE 2 MG/ML SYR IV PRN (15:24)
[2019-05-06] MEDS ORDERED: HYDRALAZINE HCL 20 MG/ML VIAL IV PRN (15:31)
[2019-05-06] MEDS: D5 0.9 NS 1,000 ML IV SCH ×2 (16:00→19:59)
[2019-05-06 16:14] LABS: Blood Morphology Comment NOT SEEN (NOT SEEN); Platelet Estimate ADEQ; Toxic Granulation 1+; White Blood Cell Scan OK
[2019-05-06] MEDS ORDERED: NA CHLORIDE 0.9% 500 ML ONE (16:43)
[2019-05-06] MEDS: BACLOFEN 10 MG TAB PO SCH ×2 (17:00→20:34)
[2019-05-06] MEDS ORDERED: Meropenem 500 MG VIAL IV SCH (17:00)
[2019-05-06] MEDS: HEPARIN 5000 UNIT/ML 1 ML VIAL SQ SCH (17:00)
[2019-05-06] MEDS ORDERED: HOME MED 1 EA UNK (Baclofen [Baclofen] 20 MG) PO SCH (17:00)
[2019-05-06] MEDS: NA CHLORIDE 0.9% 1,000 ML IV SCH ×2 (18:30→19:18)
[2019-05-06] MEDS ORDERED: NOREPINEPHRINE 4 MG in D5W 250 ML IV PRN (18:35)
[2019-05-06] MEDS: Meropenem 500 MG in NA CHLORIDE 0.9% 100 ML IV SCH (18:38)
[2019-05-06] MEDS: levETIRAcetam 500 MG/5 ML OSYR PO SCH (20:33)
[2019-05-07] MEDS: HEPARIN 5000 UNIT/ML 1 ML VIAL SQ SCH ×3 (00:53→16:01)
[2019-05-07] MEDS: Meropenem 500 MG in NA CHLORIDE 0.9% 100 ML IV SCH ×3 (00:53→16:01)
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
[2019-05-07 05:19] LABS: Absolute Lymphocytes (CBC) 2.7 K/uL (0.7-4.9); Basophils % 0.3 % (0-1.3); Hematocrit 33.3 % (36.0-45.0); Lymphocytes % 33.6 % (15.3-44.8); RBC Red Blood Cell Count 3.84 M/uL (3.86-4.86)
[2019-05-07 05:30] LABS: ALT/SGPT 41 U/L (12-78); AST/SGOT 19 U/L (15-37); Albumin 2.7 g/dL (3.4-5.0); Alkaline Phosphatase 78 U/L (45-117); BUN Blood Urea Nitrogen 5 mg/dL (7-18); Bicarbonate 26 mmol/L (21-32); Bilirubin Total 0.2 mg/dL (0.2-1.0); Glucose Level 90 mg/dL (74-106); Potassium 3.7 mmol/L (3.5-5.1); Protein, Total 6.6 g/dL (6.4-8.2); Sodium Level 139 mmol/L (136-145)
[2019-05-07] MEDS: D5 0.9 NS 1,000 ML IV SCH ×2 (06:26→17:43)
[2019-05-07] MEDS: BACLOFEN 10 MG TAB PO SCH ×3 (07:58→16:00)
[2019-05-07] MEDS: levETIRAcetam 500 MG/5 ML OSYR PO SCH (07:58)
--- NOTE | 2019-05-07 09:28 | EKG ---
Test Date: 2019-05-06 Test Time: 12:50:31 Applied Psychology Chair: MANUEL MEASUREMENT RESULTS: Intervals: Rate: 122 WI: 144 QRSD: 74 QT: 316 QTc: 450 [place]: P: 31 WI: 144 QRS: -41 T: 33 INTERPRETIVE STATEMENTS: Sinus tachycardia Left axis deviation Pulmonary disease pattern Abnormal ECG Compared to ECG 03/31/2019 14:01:14 Left-axis deviation now present Sinus rhythm no longer present Electronically Signed On 05-07-19 09:27:21 CDT by Mj Kohli
--- NOTE | 2019-05-07 11:01 | P.PN ---
Subjective Date of Service: 05/07/19 Subjective: No new changes, Tolerating diet Physical Examination - Vital Signs Temperature: 98.2 F Blood Pressure: 101/74 Pulse: 96 Respirations: 10 Pulse Ox (%): 97 - Physical Exam General: Other (opens yes , smiles , non verbal ) HEENT: Atraumatic, Normocephalic Neck: Supple, 2+ carotid pulse no bruit Respiratory: Clear to auscultation bilaterally, Normal air movement Cardiovascular: Normal pulses, Regular rate/rhythm, Normal S1 S2 Capillary refill: <2 Seconds Gastrointestinal: Normal bowel sounds, No tenderness, Other (s/p peg tinsitu ) Musculoskeletal: No clubbing, No swelling Neurological: Abnormal speech, Abnormal tone, Abnormal cranial nerve function Urinary: Lafleur catheter - Studies Laboratory Data (last 24 hrs) 05/06/19 12:43: PT 13.5 H, INR 1.15, APTT 36.4 05/06/19 12:43: WBC 17.5 H, Hgb 11.3 L, Hct 35.3 L, Plt Count 223 05/06/19 12:43: Sodium 136, Potassium 3.8, BUN 14, Creatinine 0.73, Glucose 187 H, Total Bilirubin 0.3, AST 37, ALT 64, Alkaline Phosphatase 106, Lipase 90 Microbiology Data (last 24 hrs): 05/06/19 14:00 Nasopharnyx Influenza Type A Antigen Screen - Final 05/06/19 14:00 Nasopharnyx Influenza Type B Antigen Screen - Final Medications List Reviewed: Yes Assessment & Plan Physician Review: Patient Assessed, Agree with Above Assessment and Plan Physician Review Additional Text: Sepsis- improving with IVF and empirical abx -c/w merrem -may be due to recurrent pseudomonas infection -possible aspiration despite neg CXR -FOLLOW blood cx -will repeat CXR today since after hydration and follow -Sister/caregiver d/w to stop gicing patient free water via mouth -dc lafleur -c/w IVF NS Hypotension -resolved TBI/quadriplgia - stable s/p PEG -C/W TUBE FEEDING Transfer to floor today
--- NOTE | 2019-05-07 11:18 | RAD REPORT ---
EXAM DESCRIPTION: Jesus Single View05/07/2019 11:11 am CLINICAL HISTORY: Chest pain COMPARISON: May 06, 2019 FINDINGS: The lungs appear clear of acute infiltrate. The heart is normal size IMPRESSION: No acute abnormalities displayed
[2019-05-07] MEDS: GABAPENTIN 300 MG CAP FT SCH (12:52)
[2019-05-08] MEDS: DIAZEPAM 5 MG TABLET FT SCH ×2 (00:25→22:45)
[2019-05-08] MEDS: BACLOFEN 10 MG TAB PO SCH ×6 (00:25→22:45)
[2019-05-08] MEDS: GABAPENTIN 300 MG CAP FT SCH ×2 (00:25→09:42)
[2019-05-08] MEDS: levETIRAcetam 500 MG/5 ML OSYR PO SCH ×3 (00:25→22:45)
[2019-05-08] MEDS: HEPARIN 5000 UNIT/ML 1 ML VIAL SQ SCH ×3 (01:01→16:41)
[2019-05-08] MEDS: Meropenem 500 MG in NA CHLORIDE 0.9% 100 ML IV SCH ×3 (01:01→16:40)
[2019-05-08 04:30] LABS: Absolute Lymphocytes (CBC) 3.9 K/uL (0.7-4.9); Basophils % 0.2 % (0-1.3); Hematocrit 32.2 % (36.0-45.0); Lymphocytes % 48.9 % (15.3-44.8); MPV 11.7 fL (7.6-11.3); RBC Red Blood Cell Count 3.74 M/uL (3.86-4.86)
[2019-05-08 04:41] LABS: ALT/SGPT 36 U/L (12-78); AST/SGOT 12 U/L (15-37); Albumin 2.9 g/dL (3.4-5.0); Alkaline Phosphatase 77 U/L (45-117); BUN Blood Urea Nitrogen 4 mg/dL (7-18); Bicarbonate 26 mmol/L (21-32); Bilirubin Total 0.1 mg/dL (0.2-1.0); Glucose Level 101 mg/dL (74-106); Potassium 3.8 mmol/L (3.5-5.1); Protein, Total 7.1 g/dL (6.4-8.2); Sodium Level 143 mmol/L (136-145)
[2019-05-08] MEDS: D5 0.9 NS 1,000 ML IV SCH (05:08)
[2019-05-08 05:24] LABS: Blood Morphology Comment NOT SEEN (NOT SEEN); Platelet Estimate ADEQ
--- NOTE | 2019-05-08 13:05 | P.PN ---
Subjective Date of Service: 05/08/19 Subjective: No new changes, NPO (-Overnight restarted on Neurontin and baclofen , blood pressure trended down from 120s to systolic of 90s again now - no fever , no change in mentation) Physical Examination - Vital Signs Temperature: 96.6 F Blood Pressure: 91/61 Pulse: 96 Respirations: 14 Pulse Ox (%): 96 - Physical Exam General: Alert, Other (non verbal , alert and smiling ) HEENT: Atraumatic Neck: 2+ carotid pulse no bruit, JVD not distended Respiratory: Clear to auscultation bilaterally, Normal air movement Cardiovascular: Regular rate/rhythm, Normal S1 S2 Gastrointestinal: Normal bowel sounds, Soft and benign (peg insitu ) Musculoskeletal: Clubbing, Contractures Neurological: Other, Abnormal affect - Studies Laboratory Last Values WBC 8.0 K/uL (4.3-10.9) 05/08/19 04:03 RBC 3.74 M/uL (3.86-4.86) L 05/08/19 04:03 Hgb 10.6 g/dL (12.0-15.0) L 05/08/19 04:03 Hct 32.2 % (36.0-45.0) L 05/08/19 04:03 MCV 86.1 fL (80-100) 05/08/19 04:03 MCH 28.2 pg (27.0-35.0) 05/08/19 04:03 MCHC 32.7 g/dL (32.0-36.0) 05/08/19 04:03 RDW 18.2 % (12.1-15.2) H 05/08/19 04:03 Plt Count 212 K/uL (152-406) D 05/08/19 04:03 MPV 11.7 fL (7.6-11.3) H 05/08/19 04:03 Neutrophils % 39.6 % (41.7-73.7) L 05/08/19 04:03 Lymphocytes % 48.9 % (15.3-44.8) H 05/08/19 04:03 Monocytes % 7.8 % (3.3-12.3) 05/08/19 04:03 Eosinophils % 3.5 % (0-4.4) 05/08/19 04:03 Basophils % 0.2 % (0-1.3) 05/08/19 04:03 Absolute Neutrophils 3.2 K/uL (1.8-8.0) 05/08/19 04:03 Segmented Neutrophils 48 % (40-80) 05/08/19 04:03 Band Neutrophils 2 % (0-1) H 05/08/19 04:03 Absolute Lymphocytes 3.9 K/uL (0.7-4.9) 05/08/19 04:03 Lymphocytes 36 % (15-42) 05/08/19 04:03 Monocytes 8 % (0-10) 05/08/19 04:03 Absolute Monocytes 0.6 K/uL (0.1-1.3) 05/08/19 04:03 Eosinophils 4 % (0-3) H 05/08/19 04:03 Absolute Eosinophils 0.3 K/uL (0-0.5) 05/08/19 04:03 Absolute Basophils 0.0 K/uL (0-0.5) 05/08/19 04:03 Reactive Lymphocytes 2 % 05/08/19 04:03 Toxic Granulation 1+ 05/06/19 12:43 Morphology Comment Not seen (NOT SEEN) 05/08/19 04:03 PT 13.5 SECONDS (9.5-12.5) H 05/06/19 12:43 INR 1.15 05/06/19 12:43 APTT 36.4 SECONDS (24.3-36.9) 05/06/19 12:43 Sodium 143 mmol/L (136-145) 05/08/19 04:03 Potassium 3.8 mmol/L (3.5-5.1) 05/08/19 04:03 Chloride 112 mmol/L (98-107) H 05/08/19 04:03 Carbon Dioxide 26 mmol/L (21-32) 05/08/19 04:03 BUN 4 mg/dL (7-18) L 05/08/19 04:03 Creatinine 0.45 mg/dL (0.55-1.3) L 05/08/19 04:03 Estimated GFR > 90 mL/min (=/>90) 05/08/19 04:03 Glucose 101 mg/dL (74-106) 05/08/19 04:03 Lactic Acid 1.7 mmol/L (0.4-2.0) 05/06/19 12:43 Calcium 8.7 mg/dL (8.5-10.1) 05/08/19 04:03 Total Bilirubin 0.1 mg/dL (0.2-1.0) L 05/08/19 04:03 Direct Bilirubin 0.1 mg/dL (0-0.2) 05/06/19 12:43 AST 12 U/L (15-37) L 05/08/19 04:03 ALT 36 U/L (12-78) 05/08/19 04:03 Alkaline Phosphatase 77 U/L (45-117) 05/08/19 04:03 Creatine Kinase 35 U/L (26-192) 05/06/19 12:43 Rapid Troponin I < 0.02 ng/mL (0.0-0.045) 05/06/19 12:43 Serum Total Protein 7.1 g/dL (6.4-8.2) 05/08/19 04:03 Albumin 2.9 g/dL (3.4-5.0) L 05/08/19 04:03 Globulin 4.2 g/dL (2.3-3.5) H 05/08/19 04:03 Albumin/Globulin Ratio 0.7 (1.1-1.8) L 05/08/19 04:03 Lipase 90 U/L (73-393) 05/06/19 12:43 Procalcitonin 0.09 ng/mL (<0.50) 05/06/19 12:43 Urine pH 5.5 (5.0-7.0) 05/06/19 14:14 Ur Specific [place] <1.005 (1.005-1.030) L 05/06/19 14:14 Glucose (UA)(Auto) Negative (NEG) 05/06/19 14:14 Urine Ketones Negative (NEG) 05/06/19 14:14 Urine Blood Trace (NEG) H 05/06/19 14:14 Urine Nitrite Negative (NEG) 05/06/19 14:14 Ur Leukocyte Esterase Negative (NEG) 05/06/19 14:14 Urine RBC <5 /HPF (NONE SEEN) 05/06/19 14:00 Urine WBC <5 /HPF (<5) 05/06/19 14:00 Ur Squamous Epith Cells 5-10 /HPF (NONE SEEN) H 05/06/19 14:00 Urine Bacteria <20 /HPF (<20) 05/06/19 14:00 Urine Culture Reflexed Not needed 05/06/19 14:00 Urine Total Protein Negative (NEG) 05/06/19 14:14 Microbiology Data (last 24 hrs): 05/06/19 14:00 Catheterized Urine [place] Count - Final 05/06/19 14:00 Catheterized Urine - Final No growth. Medications List Reviewed: Yes Assessment & Plan Physician Review: Patient Assessed, Agree with Above Assessment and Plan Physician Review Additional Text: Sepsis-still unclear etiology -Blood culture are no growth to date -leukocytosis trended down. -continue antibiotics with meropenem -family requested ID evaluation for recurrent Pseudomonas infection, will consult ID, Dr. Mora discussed with , will see patient later toay or in am -c/w IVF 05/06 improving with IVF and empirical abx -c/w merrem -may be due to recurrent pseudomonas infection -possible aspiration despite neg CXR and sister reported hx of giving patient water via po -Follow blood cx -will repeat CXR today since after hydration and follow -Sister/caregiver d/w to stop giving patient free water via mouth -dc lafleur -c/w IVF NS Hypotension -intermittent now , will bolus 1 L again -switch IVF to NS - obtain cortisol in am - start Midodrine if still low TBI/quadriplgia - stable s/p PEG -c/w tube feeding tid Critical Care: No Time Spent Managing Pts Care (In Minutes): 35
[2019-05-08] MEDS: NA CHLORIDE 0.9% 1,000 ML IV SCH ×2 (14:14→22:46)
[2019-05-08] MEDS: GABAPENTIN 100 MG CAP FT SCH ×2 (14:16→22:45)
[2019-05-08] MEDS: MIDODRINE HCL 5 MG TABLET PO SCH ×2 (14:18→22:45)
[2019-05-09] MEDS: HEPARIN 5000 UNIT/ML 1 ML VIAL SQ SCH ×3 (00:37→18:00)
[2019-05-09] MEDS: Meropenem 500 MG in NA CHLORIDE 0.9% 100 ML IV SCH ×2 (00:38→09:40)
[2019-05-09 06:23] LABS: Absolute Lymphocytes (CBC) 4.2 K/uL (0.7-4.9); Basophils % 0.2 % (0-1.3); Hematocrit 30.5 % (36.0-45.0); Lymphocytes % 23.9 % (15.3-44.8); MPV 11.7 fL (7.6-11.3); RBC Red Blood Cell Count 3.53 M/uL (3.86-4.86)
[2019-05-09 06:43] LABS: ALT/SGPT 45 U/L (12-78); AST/SGOT 28 U/L (15-37); Albumin 2.9 g/dL (3.4-5.0); Alkaline Phosphatase 78 U/L (45-117); BUN Blood Urea Nitrogen 5 mg/dL (7-18); Bicarbonate 27 mmol/L (21-32); Bilirubin Total 0.2 mg/dL (0.2-1.0); Glucose Level 79 mg/dL (74-106); Potassium 3.8 mmol/L (3.5-5.1); Protein, Total 7.1 g/dL (6.4-8.2); Sodium Level 140 mmol/L (136-145)
[2019-05-09] MEDS ORDERED: Pharmacy Consult 1 EA XX PRN (08:05)
--- NOTE | 2019-05-09 08:59 | RAD REPORT ---
EXAM DESCRIPTION: CT - Thorax Wo Con - 05/09/2019 8:31 am CLINICAL HISTORY: sepsis of unclear source, possible Pseudomonas infection COMPARISON: Thorax W/ Con dated 07/14/2018; Chest Single View dated 05/07/2019 TECHNIQUE: Axial 5 mm thick images of the chest were obtained without IV contrast. All CT scans are performed using dose optimization technique as appropriate and may include automated exposure control or mA/KV adjustment according to patient size. FINDINGS: Right hemidiaphragm elevation is present. Stranding at the right base is believed to be ch ronic atelectasis. A dense consolidation is not seen in this location. No other focal consolidation. There is no lung parenchymal mass or cavitation. Minimal hazy ground-glass opacities are present in t he upper lobes and in the superior aspect of each lower lobe. This is probably a mild alveolar edema. A mild alveolitis infectious/ inflammatory process is possible. This is not a typical bacterial pneu monia pattern. Minimal atelectasis present in the posterior gutter on the left. Pleural effusions seen June 2018 have resolved. There is no pleural fluid seen on the current study. No pneumothorax. No abnormal mediastinal or hilar masses or lymphadenopathy seen. No gross aortic or pulmonary artery finding suspected. No endobronchial lesions seen. Right hilar calcifications are present similar to comparison. No mass of the chest wall. No abnormal axillary lymphadenopathy. Patient has several bilateral breast masses similar to the prior study. These are probably cysts of the breast tissue. Findings are not a dequately assessed on a CT study. Prominent scoliosis changes noted without an acute bone process seen. IMPRESSION: Minimal ground-glass opacities in the mid and upper lung navarro. These may be mild alveo lar edema from volume overload. Alveolitis from an infectious/inflammatory process is possible. Lung parenchymal findings are not typical for bacterial pneumonia. No consolidation, cavitation or ma ss lesions seen. Bilateral breast masses are present similar to comparison. These are not adequately assessed on CT im aging but may simply represent cysts.
[2019-05-09] MEDS ORDERED: VANCOMYCIN 1.25 GM in NA CHLORIDE 0.9% 250 ML IVPB SCH (09:00)
--- NOTE | 2019-05-09 09:10 | RAD REPORT ---
EXAM DESCRIPTION: CT - Abdomen Pelvis Wo Contrast - 05/09/2019 8:31 am CLINICAL HISTORY: sepsis of unclear source Abdominal pain COMPARISON: Thorax Wo Con dated 05/09/2019 TECHNIQUE: Axial [address] imaging of the abdomen and pelvis was performed without IV contrast. No IV contrast was given because of allergy, abnormal renal function, patient refusal or physician re quest. No oral contrast administered. All CT scans are performed using dose optimization technique as appropriate and may include automated exposure control or mA/KV adjustment according to patient size. FINDINGS: Lung bases are addressed on the separately reported CT chest examination The liver, spleen and pancreas show no suspicious findings on non-contrast imaging. Gallbladder is we ll filled but not dilated. Gallstones can be occult on CT imaging. An acute gallbladder process is no t suspected. No biliary tree dilatation. No hydronephrosis. Nonobstructing calyx or pyramid calculi are present in each kidney. Two linear hyp erdensities are present in proximity to the left mid ureter. These have the appearance of a clip or s urgical device. These do not have the appearance of a typical ureteral calculus. No significant adren al finding. Isodense renal masses and pyelonephritis cannot be excluded in the absence of IV contrast . No bladder wall thickening or edema. No bladder calculi. Uterus and ovaries show no suspicious find ings. No gastric dilatation or wall thickening. PEG tube is in place. No edema or stranding seen between th e gastric wall in the skin surface. No dilated small bowel. Large stool volume distends but does not grossly dilate the colon from mid ascending colon through the descending colon. Sigmoid is tortuous. No abnormal stool volume in the rectum. Cecum is low lying near the right adnexa. The appendix is not clearly defined as a unique structure. No direct or indirect evidence for acute appendicitis. No free air, free fluid or inflammatory stranding. No hernia, mass or bulky lymphadenopathy. No acute bone finding. Chronic scoliotic changes are present. IMPRESSION: Non-contrast enhanced CT abdomen and pelvis imaging shows no focal abnormality as a sour ce for infection. Gallstones can be occult on CT imaging. No direct or indirect evidence for an acute gallbladder or bi liary tree process. Isodense masses and pyelonephritis are not excluded on a noncontrast study. Cecum is low-lying in the pelvis near the right adnexa. Appendix is not clearly defined but no indire ct evidence for acute appendicitis seen.
[2019-05-09] MEDS: MIDODRINE HCL 5 MG TABLET PO SCH ×3 (09:42→21:38)
[2019-05-09] MEDS: levETIRAcetam 500 MG/5 ML OSYR PO SCH ×2 (09:43→21:40)
[2019-05-09] MEDS: GABAPENTIN 100 MG CAP FT SCH ×3 (09:43→21:39)
[2019-05-09] MEDS: BACLOFEN 10 MG TAB PO SCH ×4 (09:43→21:39)
--- NOTE | 2019-05-09 12:37 | P.PN ---
Subjective Date of Service: 05/09/19 Subjective: No new changes Physical Examination - Vital Signs Temperature: 97.1 F Blood Pressure: 93/58 Pulse: 90 Respirations: 16 Pulse Ox (%): 98 - Physical Exam General: In no apparent distress, Confused HEENT: Atraumatic, PERRLA, EOMI Neck: Supple, JVD not distended Respiratory: Clear to auscultation bilaterally, Diminished Cardiovascular: Regular rate/rhythm, Normal S1 S2 Gastrointestinal: Normal bowel sounds, Other (PEG in place) Musculoskeletal: Contractures Integumentary: No rashes Neurological: Other - Studies Medications List Reviewed: Yes Assessment & Plan Physician Review: Patient Assessed, Agree with Above Assessment and Plan Physician Review Additional Text: #Sepsis-still unclear etiology; Reddy CT ordered. -Blood culture are no growth to date -leukocytosis trended up -continue antibiotics with meropenem; add vancomycin. -family requested ID evaluation for recurrent Pseudomonas infection. -consult ID, Dr. Mora. -c/w IVF; and abx per ID -may be due to recurrent pseudomonas infection -possible aspiration despite neg CXR and sister reported hx of giving patient water via po -Follow blood cx -will repeat CXR today since after hydration and follow -Sister/caregiver d/w to stop giving patient free water via mouth -dc lafleur -c/w IVF NS #Hypotension -intermittent now, will bolus 1 L again -continue NS - obtain cortisol in am - start Midodrine if still low #TBI/quadriplgia - stable #s/p PEG -c/w tube feeding tid
[2019-05-09] MEDS ORDERED: NA CHLORIDE 0.9% 1,000 ML IV ONE (13:00)
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
[2019-05-09] MEDS: NA CHLORIDE 0.9% 1,000 ML IV SCH ×2 (14:25→22:49)
[2019-05-09] MEDS: METRONIDAZOLE 500mg IVPB 500 MG/100 ML BAG IV SCH (18:00)
[2019-05-09] MEDS: DIAZEPAM 5 MG TABLET FT SCH (21:39)
[2019-05-09] MEDS: CIPROFLOXACIN 400mg IV 400 MG/200 ML BAG IV SCH (21:40)
[2019-05-10] MEDS: HEPARIN 5000 UNIT/ML 1 ML VIAL SQ SCH ×3 (01:29→17:10)
[2019-05-10] MEDS: METRONIDAZOLE 500mg IVPB 500 MG/100 ML BAG IV SCH ×3 (01:29→17:10)
[2019-05-10] MEDS: NA CHLORIDE 0.9% 1,000 ML IV SCH ×2 (05:00→15:00)
[2019-05-10 05:37] VITALS: BMI 26.8
[2019-05-10 08:31] LABS: Absolute Lymphocytes (CBC) 3.7 K/uL (0.7-4.9); Basophils % 0.8 % (0-1.3); Hematocrit 29.7 % (36.0-45.0); Lymphocytes % 33.4 % (15.3-44.8); MPV 12.1 fL (7.6-11.3); RBC Red Blood Cell Count 3.49 M/uL (3.86-4.86)
[2019-05-10] MEDS: MIDODRINE HCL 5 MG TABLET PO SCH ×3 (09:13→21:19)
[2019-05-10] MEDS: BACLOFEN 10 MG TAB PO SCH ×4 (09:13→21:20)
[2019-05-10] MEDS: CIPROFLOXACIN 400mg IV 400 MG/200 ML BAG IV SCH ×2 (09:14→21:19)
[2019-05-10] MEDS: GABAPENTIN 100 MG CAP FT SCH ×3 (09:20→21:20)
[2019-05-10] MEDS: levETIRAcetam 500 MG/5 ML OSYR PO SCH ×2 (09:21→21:20)
[2019-05-10] MEDS: DIAZEPAM 5 MG TABLET FT SCH (21:20)
[2019-05-11] MEDS: METRONIDAZOLE 500mg IVPB 500 MG/100 ML BAG IV SCH ×3 (01:13→16:00)
[2019-05-11] MEDS: HEPARIN 5000 UNIT/ML 1 ML VIAL SQ SCH ×3 (01:13→16:00)
[2019-05-11] MEDS: CIPROFLOXACIN 400mg IV 400 MG/200 ML BAG IV SCH ×2 (08:00→21:08)
[2019-05-11] MEDS: levETIRAcetam 500 MG/5 ML OSYR PO SCH ×2 (08:20→21:08)
[2019-05-11] MEDS: MIDODRINE HCL 5 MG TABLET PO SCH ×3 (08:20→21:08)
[2019-05-11] MEDS: BACLOFEN 10 MG TAB PO SCH ×4 (08:21→21:08)
[2019-05-11] MEDS: GABAPENTIN 100 MG CAP FT SCH ×3 (08:21→21:08)
[2019-05-11 11:01] LABS: Basophils % 0.5 % (0-1.3); Hematocrit 31.2 % (36.0-45.0); Lymphocytes % 26.6 % (15.3-44.8); MPV 11.6 fL (7.6-11.3); RBC Red Blood Cell Count 3.64 M/uL (3.86-4.86)
[2019-05-11 11:23] LABS: ALT/SGPT 47 U/L (12-78); AST/SGOT 24 U/L (15-37); Albumin 3.1 g/dL (3.4-5.0); Alkaline Phosphatase 76 U/L (45-117); BUN Blood Urea Nitrogen 10 mg/dL (7-18); Bicarbonate 29 mmol/L (21-32); Bilirubin Total 0.4 mg/dL (0.2-1.0); Glucose Level 103 mg/dL (74-106); Potassium 3.5 mmol/L (3.5-5.1); Protein, Total 7.7 g/dL (6.4-8.2); Sodium Level 138 mmol/L (136-145)
--- NOTE | 2019-05-11 16:00 | PN ---
Subjective: Patient lying in bed. She looks comfortable. She has no chest pain, no abdominal pain. No complaint. Her sister is not at bedside. Review of Systems: Otherwise unobtainable. Objective: Vital Signs: Blood pressure is 90/60, respiratory rate 20, pulse 90, temperature 97.2, s aturating 95%. General: Patient is alert. She is not oriented. Does not look in any distress. HEENT: Atraumatic, normocephalic. PERRLA. Oral mucosa is moist. Neck: Supple. No JVD. Chest: Clear to auscultation. Decreased breath sounds in the bases. There are no crackles or wheez ing. Heart: Regular rate and rhythm. S1, S2 normal. No gallop or murmur. Abdomen: Soft, nontender. No masses. No hepatosplenomegaly. Positive bowel sounds. Extremities: All contracted. Neuro: Deferred. Laboratory Data: Labs today showed CBC within normal except for white blood cells , hemogl obin 9.9, and platelets of 245. Chemistry within normal. INR is 1.15. Assessment/plan: 1.A 28-year-old female with history of traumatic brain injury, status post quadriplegia, admitted wi th a sepsis-like picture and found to have aspiration pneumonia on x-ray. CT with questionable infil trate. Blood culture on April [address] Collado stopped vancomycin and me ropenem given risk of seizure and started on Cipro and clindamycin. Her white blood cells improved i nitially and went down to 11.1 yesterday, but is up again to today. There is no fever, bu t she is still has bandemia. We will continue IV antibiotic in the meantime as done by Dr. Collado. Extensive discussion with sister yesterday about aspiration precaution and the fact that her sister s hould not be given oral drinks. 2.Hypotension, still borderline low. Patient is asymptomatic. Cortisol level was normal. She is c urrently on midodrine 5 mg t.i.d. 3.Traumatic brain injury, quadriplegia; stable, chronic. She is on Valium, baclofen. 4.Deep vein thrombosis prophylaxis. She is on heparin. 5.Discharge plan will be based on PT/OT recommendations as well as when her white blood cells normal ize. We will consult director social to discuss with sister what patient needs upon discharge. ROSSY/LEE Voice ID: [id number] Report ID: [id number]
[2019-05-11] MEDS: DIAZEPAM 5 MG TABLET FT SCH (21:08)
[2019-05-12] MEDS: METRONIDAZOLE 500mg IVPB 500 MG/100 ML BAG IV SCH ×3 (00:03→17:00)
[2019-05-12] MEDS: HEPARIN 5000 UNIT/ML 1 ML VIAL SQ SCH ×3 (00:04→17:18)
[2019-05-12 04:39] LABS: Absolute Lymphocytes (CBC) 4.6 K/uL (0.7-4.9); Basophils % 0.7 % (0-1.3); Hematocrit 32.6 % (36.0-45.0); Lymphocytes % 45.9 % (15.3-44.8); MPV 11.3 fL (7.6-11.3); RBC Red Blood Cell Count 3.77 M/uL (3.86-4.86)
[2019-05-12 04:59] LABS: ALT/SGPT 60 U/L (12-78); AST/SGOT 45 U/L (15-37); Albumin 3.3 g/dL (3.4-5.0); Alkaline Phosphatase 80 U/L (45-117); BUN Blood Urea Nitrogen 9 mg/dL (7-18); Bicarbonate 30 mmol/L (21-32); Bilirubin Total 0.4 mg/dL (0.2-1.0); Glucose Level 79 mg/dL (74-106); Potassium 3.8 mmol/L (3.5-5.1); Protein, Total 8.2 g/dL (6.4-8.2); Sodium Level 139 mmol/L (136-145)
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
[2019-05-12] MEDS: MIDODRINE HCL 5 MG TABLET PO SCH ×2 (09:00→13:16)
[2019-05-12] MEDS: levETIRAcetam 500 MG/5 ML OSYR PO SCH (09:21)
[2019-05-12] MEDS: CIPROFLOXACIN 400mg IV 400 MG/200 ML BAG IV SCH (09:21)
[2019-05-12] MEDS: GABAPENTIN 100 MG CAP FT SCH ×2 (09:22→13:40)
[2019-05-12] MEDS: BACLOFEN 10 MG TAB PO SCH ×3 (09:22→17:18)
[2019-05-12 09:42] VITALS: O2SAT 96
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
[2019-05-12 16:19] VITALS: TEMP 97.2
[2019-05-12 20:50] VITALS: BP 102/73
== END 2019-05-12 20:36 | disposition home or self-care (01) | DRG 871 ==
LOC: ER 12:38 → ERHOLD 15:25 → 3RD-ICU 17:53 → 4TH 05-07 13:38
PROVIDERS: ADMIT Internal Medicine; ATTEND Internal Medicine
DX: A41.9 Sepsis, unspecified organism (principal); J69.0 Pneumonitis due to inhalation of food and vomit; G82.50 Quadriplegia, unspecified; E86.0 Dehydration; R56.9 Unspecified convulsions; I95.9 Hypotension, unspecified; Z93.1 Gastrostomy status; Z87.820 Personal history of traumatic brain injury
CPT/HCPCS: 36415; 51702; 71045; 71250; 74176; 80048; 80053; 80076; 80177; 80202; 81003; 81015; 82533; 82550; 82565; 83605; 83690; 84145; 84484; 85025; 85610; 85730; 87040; 87086; 87088; 87804; 93005; 94640; 96365; 96366; 96367; 99285; J0744; J1644; J3370; J7030; J7040; J7042; J7060